=== PATIENT | male | born 1970 | race Caucasian/White ===

== ENCOUNTER 2018-12-14 08:00 | Outpatient (CLI) | payer BC, MEDICAID ==
[2018-12-14 17:58] LABS: BASOPHILS % (AUTO) 0.3 %; EOSINOPHILS # (AUTO) 0.1 10^3/uL (0.0-0.7); HGB - HEMOGLOBIN 13.4 g/dL (14.0-18.0); LYMPHOCYTES # (AUTO) 1.8 10^3/uL (1.5-3.5); LYMPHOCYTES % (AUTO) 24.4 %; MEAN CORPUSCULAR HGB CONC 33.7 g/dL (32.0-36.0); MEAN CORPUSCULAR VOLUME 86.1 fL (80.0-94.0); MEAN PLATELET VOLUME 7.8 fL (7.4-11.4); MONOCYTES # (AUTO) 0.6 10^3/uL (0.0-1.0); MONOCYTES % (AUTO) 8.7 %; NEUTROPHILS # (AUTO) 4.8 10^3/uL (1.5-6.6); NEUTROPHILS % (AUTO) 64.6 %; PLT - PLATELET COUNT 308 10^3/uL (130-450); RED BLOOD COUNT 4.61 10^6/uL (4.70-6.10); RED CELL DISTRIBUTION WIDTH 12.8 % (12.0-15.0); WHITE BLOOD COUNT 7.4 x10^3/uL (4.8-10.8)
[2018-12-14 18:31] LABS: HB2 TOTAL 14.7 g/dL; HEMOGLOBIN A1C 0.44 g/dL; HEMOGLOBIN A1C % 4.9 % (4.6-6.2)
[2018-12-14 18:37] LABS: ALBUMIN 3.4 g/dL (3.2-5.5); ALBUMIN/GLOBULIN RATIO 1.1 (1.0-2.2); ALKALINE PHOSPHATASE 72 IU/L (42-121); ALT ALANINE AMINOTRANSFERASE 33 IU/L (10-60); AST ASPARTATE AMINOTRANSFERASE 26 IU/L (10-42); BILIRUBIN,TOTAL 0.7 mg/dL (0.2-1.0); BUN - BLOOD UREA NITROGEN 8 mg/dL (6-20); CALCIUM 8.8 mg/dL (8.5-10.3); CARBON DIOXIDE - CO2 30 mmol/L (21-32); CHLORIDE 99 mmol/L (101-111); CHOL/HDL RATIO 2.7 (<5.0); CHOLESTEROL 134 mg/dL; CREATININE 0.8 mg/dL (0.6-1.2); GFR - MDRD 102 (>89); GLUCOSE 96 mg/dL (70-100); HDL CHOLESTEROL 49 mg/dL; LDL CHOLESTEROL,CALCULATED 69 mg/dL; LDL/HDL RATIO 1.4 (<3.6); SODIUM 136 mmol/L (135-145); TOTAL PROTEIN 6.6 g/dL (6.7-8.2); VLDL CHOLESTEROL 16 mg/dL
== END 2018-12-14 23:59 | disposition home or self-care (01) ==
LOC: LAB.S 08:00
PROVIDERS: ATTEND Nurse Practitioner
DX: Z00.00 Encounter for general adult medical examination without abnormal findings (principal)
CPT/HCPCS: 36415; 80053; 80061; 82274; 83036; 83721; 84153; 85025

== ENCOUNTER 2019-04-15 14:11 | Inpatient (IN) | payer MEDICAID ==
[2019-04-15] MEDS ORDERED: VANCOMYCIN INJ 1.5 GM in SODIUM CHLORIDE 0.9% 500 ML IV STA (16:46)
[2019-04-15] MEDS ORDERED: AMPICILLIN/SULBACTAM 3 GM in SODIUM CHLORIDE 0.9% MINIBAG 100 ML IV STA (16:46)
[2019-04-15] MEDS ORDERED: SODIUM CHLORIDE 0.9% 1,000 ML IV ONE ×2 (16:48)
[2019-04-15] MEDS ORDERED: LIDOCAINE 2% 10 ML MDV SUBQ STA (16:48)
[2019-04-15] MEDS ORDERED: PIPERACILLIN/TAZOBACTAM 4.5 GM in SODIUM CHLORIDE 0.9% MINIBAG 100 ML IV STA (16:51)
[2019-04-15] MEDS ORDERED: TETANUS/DIPHTHERIA/PERTUSSIS 0.5 ML SYRINGE IM ONE (16:54)
--- NOTE | 2019-04-15 16:56 | ED Physician Documentation ---
History of Present Illness - Stated complaint Stated Complaint: LEFT ARM SWELLING/BUMP - Chief complaint Chief Complaint: Ext Problem - History obtained from History obtained from: Patient - History of Present Illness Timing: How many days ago (several) Pain level max: 8 Pain level now: 8 - Additonal information Additional information: 48-year-old male with left wrist swelling and left arm erythema and redness. No fevers. He uses heroin. Unknown last tetanus. Patient is right-handed. Worse with movement and better with rest. No trauma. Review of Systems Ten Systems: 10 systems reviewed and negative Constitutional: denies: Fever, Chills Throat: denies: Sore throat Cardiac: denies: Chest pain / pressure Respiratory: denies: Cough GI: denies: Vomiting, Diarrhea Skin: denies: Rash Musculoskeletal: denies: Neck pain, Back pain Neurologic: denies: Headache PD PAST MEDICAL HISTORY - Past Medical History Past Medical History: No - Past Surgical History Past Surgical History: No - Allergies Allergies/Adverse Reactions: Allergies Allergy/AdvReac Type Severity Reaction Status Date / Time No Known Drug Allergies Allergy Verified 04/15/19 14:16 - Social History Does the pt smoke?: No Smoking Status: Never smoker Does the pt drink ETOH?: Yes Does the pt have substance abuse?: Yes Substance Use and Type: Marijuana, Meth, Heroin - Immunizations Immunizations are current?: No PD ED PE NORMAL - Vitals Vital signs reviewed: Yes - General General: Alert and oriented X 3, No acute distress - HEENT HEENT: Moist mucous membranes - Neck Neck: Supple, no meningeal sign - Cardiac Cardiac: RRR - Respiratory Respiratory: No respiratory distress, Clear bilaterally - Abdomen Abdomen: Soft, Non tender, Non distended - Derm Derm: Warm and dry - Extremities Extremities: Other (L wrist - dorsum swelling, erythema. NVI. diffuse swelling of the hand and forearm. no palmar tenderness. Significant cellulitis from the tips of the left hand to the left elbow.) - Neuro Neuro: Alert and oriented X 3 - Psych Psych: Normal mood, Normal affect Results - Vitals Vitals: Vital Signs - 24 hr 04/15/19 04/15/19 14:13 17:28 Temperature 36.9 C 37.5 C Heart Rate 120 H 101 H Respiratory 19 16 Rate Blood Pressure 160/88 H 141/100 H O2 Saturation 98 97 Oxygen O2 Source Room air - Labs Labs: Laboratory Tests 04/15/19 04/15/19 04/15/19 17:00 17:00 17:00 WBC 18.7 H RBC 5.17 Hgb 14.6 Hct 43.5 MCV 84.1 MCH 28.2 MCHC 33.6 RDW 12.6 Plt Count 337 MPV 8.5 Neut # (Auto) Not Reportable Lymph # (Auto) Not Reportable Harvey # (Auto) Not Reportable Eos # (Auto) Not Reportable Baso # (Auto) Not Reportable Absolute Nucleated RBC Not Reportable Total Counted 100 Band Neuts % (Manual) 0 Abnorm Lymph % (Manual) 0 Nucleated RBC % Not Reportable Neutrophils # (Manual) 14.6 H Lymphocytes # (Manual) 1.9 Monocytes # (Manual) 2.1 H Eosinophils # (Manual) 0.2 Basophils # (Manual) 0.0 Differential Comment MANUAL DIFFERENTIAL WBC Morphology NORMAL APPEARANCE Platelet Estimate NORMAL (130-450,000) Platelet Morphology NORMAL APPEARANCE RBC Morph Micro Appear NORMAL APPEARANCE Sodium 136 Potassium 4.0 Chloride 98 L Carbon Dioxide 27 Anion Gap 11.0 BUN 14 Creatinine 0.9 Estimated GFR (MDRD) 89 Glucose 93 Lactic Acid 1.0 Calcium 9.1 Procedures - Abscess I&D (location) L wrist Preparation: Chlorhexadine, Lidocaine 2 % Incision: Incised with scalpel, Purulent drainage, Irrigated, Packed, Culture obtained Other: Pt tolerated well, Dressing applied, Antibiotic prescribed PD MEDICAL DECISION MAKING - ED course Complexity details: reviewed results, re-evaluated patient, considered differential, d/w patient, d/w financial reporting consultant ED course: 48-year-old male with a left wrist abscess with significant cellulitis of the hand and arm. Elevated white blood cell count. Given vancomycin and Zosyn. Will admit for further care. Discussed the case with Dr. Cook, hospitalist who accepts. Also discussed the case with Dr. Marsh, orthopedics who will consult on the patient. No evidence of deep space infection in the hand at this time. No evidence of necrotizing soft tissue infection. This document was made in part using voice recognition software. While efforts are made to proofread this document, sound alike and grammatical errors may occur. Departure - Departure Disposition: 66 [facility] DC/Xfer Clinical Impression: Abscess Cellulitis Qualifiers: Site of cellulitis: extremity Site of cellulitis of extremity: upper extremity Laterality: left Qualified Code(s): L03.114 - Cellulitis of left upper limb Condition: Stable Discharge Date/Time: 04/15/19 19:04
[2019-04-15 17:07] LABS: BASOPHILS % (AUTO) 0.3 %; EOSINOPHILS % (AUTO) 0.5 %; HGB - HEMOGLOBIN 14.6 g/dL (14.0-18.0); LYMPHOCYTES % (AUTO) 10.6 %; MEAN CORPUSCULAR HEMOGLOBIN 28.2 pg (27.0-31.0); MEAN CORPUSCULAR HGB CONC 33.6 g/dL (32.0-36.0); MEAN CORPUSCULAR VOLUME 84.1 fL (80.0-94.0); MEAN PLATELET VOLUME 8.5 fL (7.4-11.4); MONOCYTES % (AUTO) 10.3 %; NEUTROPHILS % (AUTO) 77.3 %; PLT - PLATELET COUNT 337 10^3/uL (130-450); RED BLOOD COUNT 5.17 10^6/uL (4.70-6.10); RED CELL DISTRIBUTION WIDTH 12.6 % (12.0-15.0); WHITE BLOOD COUNT 18.7 x10^3/uL (4.8-10.8)
[2019-04-15 17:13] LABS: ABNORMAL LYMPHS % (MANUAL) 0 %; BAND NEUTROPHILS % (MANUAL) 0 %
[2019-04-15 17:18] LABS: CALCIUM 9.1 mg/dL (8.5-10.3); CREATININE 0.9 mg/dL (0.6-1.2)
[2019-04-15] MEDS ORDERED: ONDANSETRON 4 MG/2 ML VIAL IVP PRN (17:38)
--- NOTE | 2019-04-15 17:46 | HISTORY & PHYSICAL EXAMINATION ---
Chief Complaint - Chief Complaint Chief Complaint: left wrist cellulitis History of Present Illness - History of Present Illness HPI Comment/Other: Mr. Dsouza is a 48-yrs-old male with a hx of Marijuana, Meth, Heroin substance abuse, who present ER complain of left wrist infection and pain. Pt report his infection had 3-4 days. He did not know how the infection started. He report he felt swelling, pain in this left wrist, then he saw a pus on the infection site. The erythema was extended from wrist up to the left arm. He admit he still shoot up with Heroin but he denies he shoot at the left wrist " I usually shoot on my arms, not the wrist." ER provider did I/D for pt, and pt's arm is covered by a gauze. There is a tiny blood around the his wrist. Pt report the tiny blood was from I/D procedure. He report he felt warm at home but he did not check the temperature. Pt had temperature 37.9 degree at ER. pt also had significant elevated WBC to 18.7. pt denies chest pain, cough, shortness of breath, headache. pt was admitted for cellulitis. History - Past Medical History MRSA Hx?: No - Family & Social History Family History Comment/Other: pt report he is living at [place] and single without family and child. Social History Notes: pt denies alcohol abuse and cigarette smoker. He report he still use Heroin Meds/Allgy - Allergies Allergies/Adverse Reactions: Allergies Allergy/AdvReac Type Severity Reaction Status Date / Time No Known Drug Allergies Allergy Verified 04/15/19 14:16 Review of Systems - Constitutional Constitutional: reports: Fever, Chills. denies: Fatigue, Malaise, Weakness, Poor appetite, Diaphoresis, Night sweats - Eyes Eyes: denies: Pain, Irritation, Amaurosis, Blurred vision, Spots in vision, Fie ld loss, Vision loss, Dipolpia - Ears, Nose & Throat Ears, Nose & Throat: denies: Ear pain, Hearing loss, Hearing aids, Tinnitus, Vertigo, Nasal pain, Nasal discharge, Nosebleeds, Nasal obstruction, Nasal congestion, Postnasal drainage, Dentures, Sore throat, Hoarseness, Mouth lesions, Bleeding gums, Dental decay - Cardiovascular Cariovascular: denies: Irregular heart rate, Palpitations, Chest pain, Edema, Lightheadedness, Syncope, Exertional dyspnea, Decr. exercise tolerance - Respiratory Respiratory: denies: Cough, Sputum production, Wheezing, Snoring, Hemoptysis, Orthopnea, SOB at rest, SOB with exertion - Gastrointestinal Gastrointestinal: denies: Abdominal pain, Abdominal distention, Constipation, Diarrhea, Change in bowel habits, Rectal bleeding, Black stools, Bloody stools, Nausea, Vomiting, Bile emesis, Danis blood emesis, Coffee grounds emesis - Genitourinary Genitourinary: denies: Dysuria, Frequency, Urgency, Hematuria, Incontinence, Flank pain, Nocturia, Urethral discharge - Musculoskeletal Musculoskeletal: denies: Muscle pain, Back pain, Muscle aches, Stiffness, Limited range of motion, Muscle weakness, Gout, Joint pain - Integumentary Integumentary: reports: Rash. denies: Pruritis, Lesions, Dryness, Lumps, Acne, Pigment changes, Nail changes - Neurological Neurological: denies: General weakness, Focal weakness, Headache, Dizziness, Numbness, Memory problems, Pre-existing deficit, Abnormal gait, Seizures, Incoordination, Slurred speech - Psychiatric Psychiatric: denies: Depression, Anxiety, Suicidal, Delusions, Hallucinations, Homicidal - Endocrine Endocrine: denies: Polyuria, Polydypsia, Polyphagia, Intolerance to cold - Hematologic/Lymphatic Hematologic/Lymphatic: denies: Anemia, Bruising, Petechiae, Blood clots, Lymphadenopathy, Bleeding tendencies Exam - Vital Signs Vital Signs: Vital Signs x48h Temp Pulse Resp BP Pulse Ox 04/15/19 17:28 37.5 C 101 H 16 141/100 H 97 04/15/19 14:13 36.9 C 120 H 19 160/88 H 98 - Physical Exam General Appearance: positive: No acute distress, Alert. negative: Lethargic Eyes Bilateral: positive: Normal inspection, PERRL, No lid inflammation, Conjunctivae nml ENT: positive: ENT inspection nml, Pharynx nml, No signs of dehydration. negative: Purulent nasal drainage, Pharyngeal erythema, Oral lesions Neck: positive: Nml inspection, Thyroid nml, No JVD, Trachea midline. negative: Thyromegaly, Lymphadenopathy (R), Lymphadenopathy (L), Stiff neck, Swelli ng/bruising, Tracheal deviation Respiratory: positive: Chest non-tender, No respiratory distress, Breath sounds nml. negative: Wheezes, Rales, Rhonchi Cardiovascular: positive: Regular rate & rhythm, No murmur, No gallop. negative: Irregularly irregular, Extrasystoles, Tachycardia, Bradycardia, JVD present, Systolic murmur, Diastolic murmur Peripheral Pulses: positive: 2+ Abdomen: positive: Non-tender, No organomegaly, Nml bowel sounds. negative: No distention, Tenderness, Guarding, Rebound Back: positive: Nml inspection. negative: CVA tenderness (R), CVA tenderness (L) Skin: positive: Warm, Dry, Skin rash, Other (swelling, erythema on left posterior hand. erythema is extended upto the left arm close to elbow. normal capillary refill and ROM on distial left fingers). negative: Cyanosis, Diaphoresis, Pallor Extremities: positive: Full ROM. negative: Calf tenderness, Joint swelling, Tashia's sign/cords Neurologic/Psychiatric: positive: Oriented x3, Motor nml, Sensation nml, Mood/affect nml. negative: Weakness, Sensory loss, Facial droop, Slurred/abnml speech, Depressed mood/affect Sepsis Event Note (H) - Evaluation Current Stage of Sepsis: Sepsis Possible source of Sepsis: positive: Skin/soft tissue - Sepsis Criteria Sepsis Criteria: Recorded Heart Rate greater than 90 bpm, WBC count greater than 12,000 or less than 4000 Conclusion/Plan - Problem List (1) Cellulitis Conclusion/Plan: cellulitis on left wrist, unknown the etiology. it is likely infected by staph a ureus treat with antibiotics vancomycin and zosyn IVF of NS pain control lab and vital monitor Qualifiers: Site of cellulitis: extremity Site of cellulitis of extremity: upper extremity Laterality: left Qualified Code(s): L03.114 - Cellulitis of left upper limb (2) Abscess Conclusion/Plan: pt had pus on the admission. ER provider did I/D for pt. wound culture is pending. continue antibiotics pain control (3) Illicit drug use Conclusion/Plan: advise pt quit illicit drug abuse will UDS to check (4) Full code status Conclusion/Plan: pt request full code status - Lab Results Fish Bones: 04/16/19 05:25 04/16/19 05:25 Core Measures - Anticipated LOS I expect patient to be DC'd or transferred within 96 hours.: Yes - DVT/VTE - Prophylaxis VTE/DVT Device ordered at admit?: Yes VTE/DVT Prophylaxis med ordered at admit?: Yes
[2019-04-15 17:54] LABS: DIFFERENTIAL COMMENT MANUAL DIFFERENTIAL; EOSINOPHILS # (MANUAL) 0.2 10^3/uL (0-0.7); LYMPHOCYTES # (MANUAL) 1.9 10^3/uL (1.5-3.5); LYMPHOCYTES % (MANUAL) 10 %; MONOCYTES # (MANUAL) 2.1 10^3/uL (0.0-1.0); NEUTROPHILS # (MANUAL) 14.6 10^3/uL (1.5-6.6); NEUTROPHILS % (MANUAL) 78 %; PLATELET ESTIMATE, MANUAL NORMAL (130-450,000) (NORMAL); PLATELET MORPHOLOGY NORMAL APPEARANCE (NORMAL); RBC MORPHOLOGY (MULTIPLE) NORMAL APPEARANCE (NORMAL)
[2019-04-15] MEDS ORDERED: HYDROmorphone 1 MG/ML CARPUJECT IVP STA (17:56)
[2019-04-15] MEDS ORDERED: VANCOMYCIN PER PHARMACY 0.001 GM in SODIUM CHLORIDE 0.9% 250 ML IV SCH (18:00)
[2019-04-15] MEDS: SODIUM CHLORIDE 0.9% 1,000 ML IV SCH (19:21)
[2019-04-15 19:24] LABS: MUDS CUTOFF CONCENTRATIONS CUTOFF CONC BELOW:
[2019-04-15 19:40] LABS: AMPHETAMINE SCREEN,URINE POSITIVE (NEGATIVE); BENZODIAZEPINES SCREEN, URINE POSITIVE (NEGATIVE); COCAINE SCREEN URINE NEGATIVE (NEGATIVE); METHADONE SCREEN, URINE NEGATIVE (NEGATIVE); METHAMPHETAMINES SCREEN, URINE NEGATIVE (NEGATIVE); OPIATE SCREEN, URINE NEGATIVE (NEGATIVE); OXYCODONE SCREEN, URINE NEGATIVE (NEGATIVE); PROPOXYPHENE SCREEN, URINE NEGATIVE (NEGATIVE); TRICYCLIC ANTIDEPRESSANT,URINE POSITIVE (NEGATIVE)
[2019-04-15] MEDS: oxyCODONE 5 MG TABLET PO PRN (20:03)
[2019-04-15] MEDS: PIPERACILLIN/TAZOBACTAM 4.5 GM in SODIUM CHLORIDE 0.9% MINIBAG 100 ML IV SCH (20:06)
[2019-04-15] MEDS: FAMOTIDINE 20 MG TABLET PO SCH (21:28)
[2019-04-15] MEDS: HYDROmorphone 1 MG/ML CARPUJECT IVP PRN (22:55)
[2019-04-16] MEDS: PIPERACILLIN/TAZOBACTAM 4.5 GM in SODIUM CHLORIDE 0.9% MINIBAG 100 ML IV SCH ×4 (00:31→19:05)
[2019-04-16] MEDS: HYDROmorphone 1 MG/ML CARPUJECT IVP PRN ×5 (00:57→15:52)
[2019-04-16] MEDS: VANCOMYCIN INJ 1 GM in SODIUM CHLORIDE 0.9% 250 ML IV SCH ×3 (01:03→16:59)
[2019-04-16] MEDS: SODIUM CHLORIDE FLUSH 0.9% 10 ML SYRINGE IVP SCH ×3 (01:43→15:52)
[2019-04-16] MEDS: oxyCODONE 5 MG TABLET PO PRN ×3 (02:01→20:53)
[2019-04-16] MEDS: ACETAMINOPHEN 325 MG TABLET PO PRN (02:01)
[2019-04-16 05:50] LABS: ALBUMIN 3.2 g/dL (3.2-5.5); ALBUMIN/GLOBULIN RATIO 0.9 (1.0-2.2); BILIRUBIN,TOTAL 2.1 mg/dL (0.2-1.0); CALCIUM 8.6 mg/dL (8.5-10.3); TOTAL PROTEIN 6.8 g/dL (6.7-8.2)
[2019-04-16 07:51] LABS: BASOPHILS % (AUTO) 0.3 %; RED BLOOD COUNT 4.85 10^6/uL (4.70-6.10)
[2019-04-16 07:54] LABS: EOSINOPHILS % (AUTO) 0.9 %; HGB - HEMOGLOBIN 13.4 g/dL (14.0-18.0); LYMPHOCYTES % (AUTO) 14.6 %; MEAN CORPUSCULAR HEMOGLOBIN 27.6 pg (27.0-31.0); MEAN CORPUSCULAR HGB CONC 32.8 g/dL (32.0-36.0); MEAN CORPUSCULAR VOLUME 84.3 fL (80.0-94.0); MEAN PLATELET VOLUME 9.1 fL (7.4-11.4); NEUTROPHILS % (AUTO) 73.6 %; PLT - PLATELET COUNT 332 10^3/uL (130-450); RED CELL DISTRIBUTION WIDTH 12.7 % (12.0-15.0); WHITE BLOOD COUNT 15.5 x10^3/uL (4.8-10.8)
[2019-04-16 08:12] LABS: ABNORMAL LYMPHS % (MANUAL) 0 %; BAND NEUTROPHILS % (MANUAL) 0 %
[2019-04-16 08:16] LABS: EOSINOPHILS # (MANUAL) 0.2 10^3/uL (0-0.7); LYMPHOCYTES # (MANUAL) 1.4 10^3/uL (1.5-3.5); LYMPHOCYTES % (MANUAL) 9 %; MONOCYTES # (MANUAL) 2.5 10^3/uL (0.0-1.0); NEUTROPHILS # (MANUAL) 11.5 10^3/uL (1.5-6.6); NEUTROPHILS % (MANUAL) 74 %
[2019-04-16 08:18] LABS: PLATELET ESTIMATE, MANUAL NORMAL (130-450,000) (NORMAL); PLATELET MORPHOLOGY NORMAL APPEARANCE (NORMAL); RBC MORPHOLOGY (MULTIPLE) NORMAL APPEARANCE (NORMAL)
[2019-04-16 08:31] LABS: DIFFERENTIAL COMMENT MANUAL DIFFERENTIAL
[2019-04-16] MEDS: SODIUM CHLORIDE 0.9% 1,000 ML IV SCH (08:48)
--- NOTE | 2019-04-16 10:12 | CONSULTATION NOTE ---
DATE OF SERVICE: 04/16/2019 Physician: Georgi Marsh MD ORTHOPEDIC INPATIENT CONSULTATION NOTE REFERRING PHYSICIAN: Dr. Calhoun in the Emergency Room Department. CHIEF COMPLAINT: "My left hand is sore." HISTORY OF PRESENT ILLNESS: Patient is a 48-year-old, right-hand dominant, male drug abuse r who apparently has noted pain, swelling, and redness to the dorsum of his left nondominant hand aft er an injection of drugs over a week ago. Patient apparently was attempting to see if this would res olve on its own, but it finally reached the point where he needed to be evaluated and treated in the emergency room. Dr. Calhoun in the emergency room department diagnosed the hand infection/abscess and proceeded to rafiq the abscess over the extensor surface of his hand. He was admitted to the medica l service for further wound care as well as multiple IV antibiotics. Overnight, he apparently has co ntinued to have some drainage from his wound. His hand edema, range of motion of his hand and erythe ma has improved remarkably. Patient denies having any fevers or numbness in his hand. PHYSICAL EXAMINATION: Patient was afebrile. His left hand dressings were removed. Patient still groves s a Nu Gauze packing over the dorsal incision site where his abscess was lanced in the emergency room . Does have some surrounding erythema, but is markedly decreased from the reports. We can start see ing some skin wrinkling on the dorsum of the hand suggesting that the edema is decreasing. Patient h as minimal lymphangitis noted in the distal forearm. Patient has good range of motion of his wrist a nd his fingers today without much discomfort. Neurovascular appears to be intact distally. LABORATORY: Showed an elevated white count of 18,700 on admission. Followup blood work taken 18 tha rs later showed a white count decreasing down to 15,500. ASSESSMENT: Left nondominant hand infection comprised of a cellulitis and localized abscess, dorsum of his hand - this is from IV drug abuse. PLAN: With the patient's clinical improvement, we will continue to observe the hand at this point. We will go ahead and make him n.p.o. after midnight today and we will reevaluate his hand in the morn ing. If it takes a turn for the worse, he may need surgical incision and drainage of his hand absces s. If he continues to improve clinically, we will continue to keep him on his antibiotics and keep t he wick in his wound for an additional 24 hours. TD: 04/16/2019 09:44
[2019-04-16] MEDS: FAMOTIDINE 20 MG TABLET PO SCH ×2 (12:09→20:53)
[2019-04-16] MEDS: POLYETHYLENE GLYCOL 3350 17 GM PACKET PO SCH (12:10)
[2019-04-16] MEDS: ENOXAPARIN 40 MG/0.4 ML SYRINGE SUBQ SCH (12:13)
--- NOTE | 2019-04-16 14:47 | PROVIDER PROGRESS NOTE ---
Subjective - Prog Note Date Prog Note Date: 04/16/19 - Subjective Pt reports feeling: Improved Subjective: pt report he has no fever, chill. he feel lots of better after treated. The swelling of his hand and erythema are significantly reduced, and pain is better. Current Medications - Current Medications Current Medications: Active Medications Acetaminophen (Tylenol) 650 mg PO Q4HR PRN PRN Reason: Pain 1 to 4 Last Admin: 04/16/19 02:01 Dose: 650 mg Enoxaparin Sodium (Lovenox) 40 mg SUBQ DAILY [facility] Last Admin: 04/16/19 12:13 Dose: 40 mg Famotidine (Pepcid) 20 mg PO BID [facility] Last Admin: 04/16/19 12:09 Dose: 20 mg Hydromorphone HCl (Dilaudid Inj Carp) 1 mg IVP Q2HR PRN PRN Reason: PAIN Last Admin: 04/16/19 15:52 Dose: 1 mg Piperacillin Sod/Tazobactam (Sod 4.5 gm/ Sodium Chloride) 100 mls @ 200 mls/hr IV Q6H [facility] Last Infusion: 04/16/19 13:35 Dose: Infused Vancomycin HCl 1 gm/ Sodium (Chloride) 250 mls @ 167 mls/hr IV Q8H [facility] Last Admin: 04/16/19 16:59 Dose: 167 mls/hr Ondansetron HCl (Zofran Inj) 4 mg IVP Q6HR PRN PRN Reason: Nausea / Vomiting Last Admin: 04/16/19 00:57 Dose: 4 mg Oxycodone HCl (Roxicodone) 5 mg PO Q4HR PRN PRN Reason: Pain 5 to 7 Last Admin: 04/16/19 16:59 Dose: 5 mg Polyethylene Glycol (Miralax) 17 gm PO DAILY [facility] Last Admin: 04/16/19 12:10 Dose: 17 gm Sodium Chloride (Normal Saline Flush 0.9%) 10 ml IVP PRN PRN PRN Reason: NEEDED PER PROVIDER ORDERS Sodium Chloride (Normal Saline Flush 0.9%) 10 ml IVP 0100,0900,1700 [facility] Last Admin: 04/16/19 15:52 Dose: 10 ml Aripiprazole [Abilify] 30 mg PO DAILY 04/16/19 Doxepin [SINEquan] 25 mg PO QPM 04/16/19 Fluoxetine HCl 60 mg PO DAILY 04/16/19 Trazodone HCl 300 mg PO QPM 04/16/19 Objective - Vital Signs/Intake & Output Reviewed Vital Signs: Yes Vital Signs: Vital Signs x48h Temp Pulse Resp BP Pulse Ox 04/16/19 13:00 37.3 C 88 14 130/70 99 04/16/19 08:04 36.8 C 74 14 116/67 98 Intake & Output: Intake & Output 04/13/19 04/14/19 04/15/19 04/16/19 23:59 23:59 23:59 23:59 Intake Total 2369.227 6740.667 Output Total 400 1975 Balance 1508.333 -213.333 - Objective General Appearance: positive: No acute distress, Alert. negative: Lethargic Eyes Bilateral: positive: Normal inspection, PERRL, No lid inflammation, Conjunctivae nml ENT: positive: ENT inspection nml, Pharynx nml, No signs of dehydration. negative: Purulent nasal drainage, Pharyngeal erythema, Oral lesions Neck: positive: Nml inspection, Thyroid nml, No JVD, Trachea midline. negative: Thyromegaly, Lymphadenopathy (R), Lymphadenopathy (L), Stiff neck, Swelling/bruising, Tracheal deviation Respiratory: positive: Chest non-tender, No respiratory distress, Breath sounds nml. negative: Wheezes, Rales, Rhonchi Cardiovascular: positive: Regular rate & rhythm, No murmur, No gallop. negative: Irregularly irregular, Extrasystoles, Tachycardia, JVD present, Systolic murmur, Diastolic murmur Peripheral Pulses: 2+ Radial (R), 2+ Radial (L), 2+ Dorsalis pedis (R), 2+ Dorsalis pedis (L) Abdomen: positive: Non-tender, No organomegaly, Nml bowel sounds, No distention. negative: Tenderness, Guarding, Rebound Back: positive: Nml inspection. negative: CVA tenderness (R), CVA tenderness (L) Skin: positive: Warm, Dry, Skin rash, Laceration (cm) (pt had I/D and covered with Gauze). negative: Cyanosis, Diaphoresis, Pallor Extremities: negative: Calf tenderness, Joint swelling, Tashia's sign/cords Neurologic/Psychiatric: positive: Oriented x3, Sensation nml, Mood/affect nml. negative: Weakness, Sensory loss, Facial droop, Slurred/abnml speech, Depressed mood/affect - Lab Results Fish Bones: 04/16/19 05:25 04/16/19 05:25 Other Labs: Lab Results x24hrs 04/16/19 04/16/19 04/15/19 Range/Units 05:25 05:25 19:20 WBC 15.5 H (4.8-10.8) x10^3/uL RBC 4.85 (4.70-6.10) 10^6/uL Hgb 13.4 L (14.0-18.0) g/dL Hct 40.9 L (42.0-52.0) % MCV 84.3 (80.0-94.0) fL MCH 27.6 (27.0-31.0) pg MCHC 32.8 (32.0-36.0) g/dL RDW 12.7 (12.0-15.0) % Plt Count 332 (130-450) 10^3/uL MPV 9.1 (7.4-11.4) fL Neut # (Auto) OIL HEAT TECHNICIAN Lymph # (Auto) OIL HEAT TECHNICIAN [place] # (Auto) OIL HEAT TECHNICIAN Eos # (Auto) OIL HEAT TECHNICIAN Baso # (Auto) OIL HEAT TECHNICIAN Absolute Nucleated RBC OIL HEAT TECHNICIAN Total Counted 100 Band Neuts % (Manual) 0 (0 - 10) % Abnorm Lymph % (Manual) 0 % Nucleated RBC % OIL HEAT TECHNICIAN Neutrophils # (Manual) 11.5 H (1.5-6.6) 10^3/uL Lymphocytes # (Manual) 1.4 L (1.5-3.5) 10^3/uL Monocytes # (Manual) 2.5 H (0.0-1.0) 10^3/uL Eosinophils # (Manual) 0.2 (0-0.7) 10^3/uL Basophils # (Manual) 0.0 (0-0.1) 10^3/uL Differential Comment MANUAL DIFFERENTIAL WBC Morphology NORMAL APPEARANCE (NORMAL) Platelet Estimate NORMAL (130-450,000) (NORMAL) Platelet Morphology NORMAL APPEARANCE (NORMAL) RBC Morph Micro Appear NORMAL APPEARANCE (NORMAL) Sodium 140 (135-145) mmol/L Potassium 3.9 (3.5-5.0) mmol/L Chloride 102 (101-111) mmol/L Carbon Dioxide 25 (21-32) mmol/L Anion Gap 13.0 (6-13) BUN 12 (6-20) mg/dL Creatinine 1.0 (0.6-1.2) mg/dL Estimated GFR (MDRD) 79 L (>89) Glucose 108 H (70-100) mg/dL Lactic Acid (0.5-2.2) mmol/L Calcium 8.6 (8.5-10.3) mg/dL Magnesium 2.0 (1.7-2.8) mg/dL Total Bilirubin 2.1 H (0.2-1.0) mg/dL AST 16 (10-42) IU/L ALT 29 (10-60) IU/L Alkaline Phosphatase 85 (42-121) IU/L Total Protein 6.8 (6.7-8.2) g/dL Albumin 3.2 (3.2-5.5) g/dL Globulin 3.6 (2.1-4.2) g/dL Albumin/Globulin Ratio 0.9 L (1.0-2.2) Urine Opiates Screen NEGATIVE (NEGATIVE) Ur Oxycodone Screen NEGATIVE (NEGATIVE) Urine Methadone Screen NEGATIVE (NEGATIVE) Ur Propoxyphene Screen NEGATIVE (NEGATIVE) Ur Barbiturates Screen NEGATIVE (NEGATIVE) Ur Tricyclics Screen POSITIVE H (NEGATIVE) Ur Phencyclidine Scrn NEGATIVE (NEGATIVE) Ur Amphetamine Screen POSITIVE H (NEGATIVE) U Methamphetamines Scrn NEGATIVE (NEGATIVE) U Benzodiazepines Scrn POSITIVE H (NEGATIVE) Urine Cocaine Screen NEGATIVE (NEGATIVE) U Cannabinoids Screen POSITIVE H (NEGATIVE) 04/15/19 04/15/19 04/15/19 Range/Units 17:00 17:00 17:00 WBC 18.7 H (4.8-10.8) x10^3/uL RBC 5.17 (4.70-6.10) 10^6/uL Hgb 14.6 (14.0-18.0) g/dL Hct 43.5 (42.0-52.0) % MCV 84.1 (80.0-94.0) fL MCH 28.2 (27.0-31.0) pg MCHC 33.6 (32.0-36.0) g/dL RDW 12.6 (12.0-15.0) % Plt Count 337 (130-450) 10^3/uL MPV 8.5 (7.4-11.4) fL Neut # (Auto) Not Reportable Lymph # (Auto) Not Reportable [place] # (Auto) Not Reportable Eos # (Auto) Not Reportable Baso # (Auto) Not Reportable Absolute Nucleated RBC Not Reportable Total Counted 100 Band Neuts % (Manual) 0 (0 - 10) % Abnorm Lymph % (Manual) 0 % Nucleated RBC % Not Reportable Neutrophils # (Manual) 14.6 H (1.5-6.6) 10^3/uL Lymphocytes # (Manual) 1.9 (1.5-3.5) 10^3/uL Monocytes # (Manual) 2.1 H (0.0-1.0) 10^3/uL Eosinophils # (Manual) 0.2 (0-0.7) 10^3/uL Basophils # (Manual) 0.0 (0-0.1) 10^3/uL Differential Comment MANUAL DIFFERENTIAL WBC Morphology NORMAL APPEARANCE (NORMAL) Platelet Estimate NORMAL (130-450,000) (NORMAL) Platelet Morphology NORMAL APPEARANCE (NORMAL) RBC Morph Micro Appear NORMAL APPEARANCE (NORMAL) Sodium 136 (135-145) mmol/L Potassium 4.0 (3.5-5.0) mmol/L Chloride 98 L (101-111) mmol/L Carbon Dioxide 27 (21-32) mmol/L Anion Gap 11.0 (6-13) BUN 14 (6-20) mg/dL Creatinine 0.9 (0.6-1.2) mg/dL Estimated GFR (MDRD) 89 (>89) Glucose 93 (70-100) mg/dL Lactic Acid 1.0 (0.5-2.2) mmol/L Calcium 9.1 (8.5-10.3) mg/dL Magnesium (1.7-2.8) mg/dL Total Bilirubin (0.2-1.0) mg/dL AST (10-42) IU/L ALT (10-60) IU/L Alkaline Phosphatase (42-121) IU/L Total Protein (6.7-8.2) g/dL Albumin (3.2-5.5) g/dL Globulin (2.1-4.2) g/dL Albumin/Globulin Ratio (1.0-2.2) Urine Opiates Screen (NEGATIVE) Ur Oxycodone Screen (NEGATIVE) Urine Methadone Screen (NEGATIVE) Ur Propoxyphene Screen (NEGATIVE) Ur Barbiturates Screen (NEGATIVE) Ur Tricyclics Screen (NEGATIVE) Ur Phencyclidine Scrn (NEGATIVE) Ur Amphetamine Screen (NEGATIVE) U Methamphetamines Scrn (NEGATIVE) U Benzodiazepines Scrn (NEGATIVE) Urine Cocaine Screen (NEGATIVE) U Cannabinoids Screen (NEGATIVE) ABX Reporting Has patient been on IV antibiotics over the past 48 hours?: Yes Sepsis Event Note (H) - Evaluation Current Stage of Sepsis: Sepsis Possible source of Sepsis: positive: Skin/soft tissue - Sepsis Criteria Sepsis Criteria: Recorded Heart Rate greater than 90 bpm, WBC count greater than 12,000 or less than 4000 Assessment/Plan - Problem List (1) Cellulitis Impression: 04/16 the erythema and swelling of dorsum of left hand is reduced. pt's pain is better controlled. continue antibiotics blood culture is pending cellulitis on left wrist, unknown the etiology. it is likely infected by staph aureus treat with antibiotics vancomycin and zosyn IVF of NS pain control lab and vital monitor (2) Abscess Conclusion/Plan: wound culture reveals positive gram stain with cocci, sensitive study is pending consult with orthopedics, will followup continue antibiotics pt had pus on the admission. ER provider did I/D for pt. wound culture is pen ding. continue antibiotics pain control (3) Illicit drug use Conclusion/Plan: advise pt quit illicit drug abuse will UDS to check Qualifiers: Site of cellulitis: extremity Site of cellulitis of extremity: upper extremity Laterality: left Qualified Code(s): L03.114 - Cellulitis of left upper limb
[2019-04-16 16:35] LABS: VANCOMYCIN,TROUGH 14.9 ug/mL (10.0-20.0)
[2019-04-17] MEDS: oxyCODONE 5 MG TABLET PO PRN ×2 (01:00→08:15)
[2019-04-17] MEDS: PIPERACILLIN/TAZOBACTAM 4.5 GM in SODIUM CHLORIDE 0.9% MINIBAG 100 ML IV SCH ×3 (01:01→13:12)
[2019-04-17] MEDS: SODIUM CHLORIDE FLUSH 0.9% 10 ML SYRINGE IVP PRN ×3 (02:30→14:04)
[2019-04-17] MEDS: VANCOMYCIN INJ 1 GM in SODIUM CHLORIDE 0.9% 250 ML IV SCH ×2 (02:30→08:16)
[2019-04-17] MEDS: SODIUM CHLORIDE FLUSH 0.9% 10 ML SYRINGE IVP SCH ×3 (02:34→18:20)
[2019-04-17] MEDS: HYDROmorphone 1 MG/ML CARPUJECT IVP PRN ×6 (02:35→21:21)
[2019-04-17 06:00] LABS: BASOPHILS % (AUTO) 0.5 %; EOSINOPHILS # (AUTO) 0.3 10^3/uL (0.0-0.7); EOSINOPHILS % (AUTO) 3.9 %; HGB - HEMOGLOBIN 12.6 g/dL (14.0-18.0); LYMPHOCYTES # (AUTO) 1.6 10^3/uL (1.5-3.5); LYMPHOCYTES % (AUTO) 20.4 %; MEAN CORPUSCULAR HEMOGLOBIN 27.3 pg (27.0-31.0); MEAN CORPUSCULAR HGB CONC 32.6 g/dL (32.0-36.0); MEAN CORPUSCULAR VOLUME 83.7 fL (80.0-94.0); MEAN PLATELET VOLUME 8.6 fL (7.4-11.4); MONOCYTES % (AUTO) 12.3 %; NEUTROPHILS # (AUTO) 4.9 10^3/uL (1.5-6.6); NEUTROPHILS % (AUTO) 61.8 %; PLT - PLATELET COUNT 311 10^3/uL (130-450); RED BLOOD COUNT 4.61 10^6/uL (4.70-6.10); RED CELL DISTRIBUTION WIDTH 12.5 % (12.0-15.0); WHITE BLOOD COUNT 7.9 x10^3/uL (4.8-10.8)
[2019-04-17 06:14] LABS: ALBUMIN 3.1 g/dL (3.2-5.5); ALBUMIN/GLOBULIN RATIO 0.8 (1.0-2.2); BILIRUBIN,TOTAL 0.9 mg/dL (0.2-1.0); CALCIUM 8.8 mg/dL (8.5-10.3); CREATININE 0.8 mg/dL (0.6-1.2); TOTAL PROTEIN 6.8 g/dL (6.7-8.2)
[2019-04-17] MEDS: ACETAMINOPHEN 325 MG TABLET PO PRN (08:14)
[2019-04-17] MEDS: FAMOTIDINE 20 MG TABLET PO SCH ×2 (08:14→20:14)
[2019-04-17] MEDS: ENOXAPARIN 40 MG/0.4 ML SYRINGE SUBQ SCH (08:17)
[2019-04-17] MEDS: POLYETHYLENE GLYCOL 3350 17 GM PACKET PO SCH (08:17)
--- NOTE | 2019-04-17 11:05 | PROVIDER PROGRESS NOTE ---
Subjective - Prog Note Date Prog Note Date: 04/17/19 Prog Note Time: 10:58 - Subjective Pt reports feeling: Improved Objective - Vital Signs/Intake & Output Vital Signs: Vital Signs x48h Temp Pulse Resp BP Pulse Ox 04/17/19 08:00 37.3 C 80 18 129/76 95 04/17/19 06:06 37.2 C 80 16 105/68 98 Intake & Output: Intake & Output 04/14/19 04/15/19 04/16/19 04/17/19 23:59 23:59 23:59 23:59 Intake Total 2557.052 0027.667 450 Output Total 400 1975 1125 Balance 7339.303 7727.667 -675 - Lab Results Fish Bones: 04/17/19 05:40 04/17/19 05:40 Other Labs: Lab Results x24hrs 04/17/19 04/17/19 04/16/19 Range/Units 05:40 05:40 16:21 WBC 7.9 (4.8-10.8) x10^3/uL RBC 4.61 L (4.70-6.10) 10^6/uL Hgb 12.6 L (14.0-18.0) g/dL Hct 38.6 L (42.0-52.0) % MCV 83.7 (80.0-94.0) fL MCH 27.3 (27.0-31.0) pg MCHC 32.6 (32.0-36.0) g/dL RDW 12.5 (12.0-15.0) % Plt Count 311 (130-450) 10^3/uL MPV 8.6 (7.4-11.4) fL Neut # (Auto) 4.9 (1.5-6.6) 10^3/uL Lymph # (Auto) 1.6 (1.5-3.5) 10^3/uL [place] # (Auto) 1.0 (0.0-1.0) 10^3/uL Eos # (Auto) 0.3 (0.0-0.7) 10^3/uL Baso # (Auto) 0.0 (0.0-0.1) 10^3/uL Absolute Nucleated RBC 0.00 x10^3/uL Nucleated RBC % 0.0 /100WBC Sodium 140 (135-145) mmol/L Potassium 3.8 (3.5-5.0) mmol/L Chloride 103 (101-111) mmol/L Carbon Dioxide 25 (21-32) mmol/L Anion Gap 12.0 (6-13) BUN 10 (6-20) mg/dL Creatinine 0.8 (0.6-1.2) mg/dL Estimated GFR (MDRD) 102 (>89) Glucose 99 (70-100) mg/dL Calcium 8.8 (8.5-10.3) mg/dL Total Bilirubin 0.9 (0.2-1.0) mg/dL AST 16 (10-42) IU/L ALT 28 (10-60) IU/L Alkaline Phosphatase 77 (42-121) IU/L Total Protein 6.8 (6.7-8.2) g/dL Albumin 3.1 L (3.2-5.5) g/dL Globulin 3.7 (2.1-4.2) g/dL Albumin/Globulin Ratio 0.8 L (1.0-2.2) Last Dose Date 04/16/19 Last Dose Time 1015 Vancomycin Trough 14.9 (10.0-20.0) ug/mL - Other Results/Comments Other Results/Comments: EXAM: Left hand: Less swelling and erythema. Much less tender over dorsum of the hand. Good, painfree AROM of wrist and digits. N/V ok Packing removed without problem. Only scant serous drainage from wound. No flocculence noted over dorsum of hand Sepsis Event Note (H) - Evaluation Current Stage of Sepsis: Sepsis Possible source of Sepsis: positive: Skin/soft tissue - Sepsis Criteria Sepsis Criteria: Recorded Heart Rate greater than 90 bpm, WBC count greater than 12,000 or less than 4000 Assessment/Plan - Problem List (1) Abscess Impression: Much improved. PLAN: Switch to oral antibiotics, wound dressing changes as needed. On discharge, follow up in clinic for wound check in a week.
--- NOTE | 2019-04-17 16:14 | PROVIDER PROGRESS NOTE ---
Subjective - Prog Note Date Prog Note Date: 04/17/19 - Subjective Pt reports feeling: Improved Subjective: pt report he still has pain on his wound but denies fever, chill, SOB. with nurse together to assess pt's wound, pt has two close sites wound, both still has drainage, but erythema and drainage are both reduced, swelling is also reduced. wound culture and sensitive study is pending. discussed with orthopedics , will switch to PO antibiotics, plan d/c pt on tomorrow. Current Medications - Current Medications Current Medications: Active Medications Acetaminophen (Tylenol) 650 mg PO Q4HR PRN PRN Reason: Pain 1 to 4 Last Admin: 04/17/19 08:14 Dose: 650 mg Cephalexin (Keflex) 250 mg PO Q6HR [facility] Enoxaparin Sodium (Lovenox) 40 mg SUBQ DAILY [facility] Last Admin: 04/17/19 08:17 Dose: Not Given Famotidine (Pepcid) 20 mg PO BID [facility] Last Admin: 04/17/19 08:14 Dose: 20 mg Hydromorphone HCl (Dilaudid Inj Carp) 1 mg IVP Q2HR PRN PRN Reason: PAIN Last Admin: 04/17/19 14:01 Dose: 1 mg Ondansetron HCl (Zofran Inj) 4 mg IVP Q6HR PRN PRN Reason: Nausea / Vomiting Last Admin: 04/16/19 00:57 Dose: 4 mg Oxycodone HCl (Roxicodone) 5 mg PO Q4HR PRN PRN Reason: Pain 5 to 7 Last Admin: 04/17/19 08:15 Dose: 5 mg Polyethylene Glycol (Miralax) 17 gm PO DAILY [facility] Last Admin: 04/17/19 08:17 Dose: 17 gm Sodium Chloride (Normal Saline Flush 0.9%) 10 ml IVP PRN PRN PRN Reason: NEEDED PER PROVIDER ORDERS Last Admin: 04/17/19 14:04 Dose: 10 ml Sodium Chloride (Normal Saline Flush 0.9%) 10 ml IVP 0100,0900,1700 [facility] Last Admin: 04/17/19 08:18 Dose: Not Given Trimethoprim/Sulfamethoxazole (Bactrim Ds 800/160) 1 tab PO BID [facility] Aripiprazole [Abilify] 30 mg PO DAILY 04/16/19 Doxepin [SINEquan] 25 mg PO QPM 04/16/19 Fluoxetine HCl 60 mg PO DAILY 04/16/19 Trazodone HCl 300 mg PO QPM 04/16/19 Objective - Vital Signs/Intake & Output Reviewed Vital Signs: Yes Vital Signs: Vital Signs x48h Temp Pulse Resp BP Pulse Ox 04/17/19 15:45 37.1 C 82 20 134/77 H 98 04/17/19 13:58 37.1 C 100 18 125/76 99 Intake & Output: Intake & Output 04/14/19 04/15/19 04/16/19 04/17/19 23:59 23:59 23:59 23:59 Intake Total 8999.744 2325.667 1450 Output Total 400 1975 1125 Balance 6355.812 9808.667 325 - Objective General Appearance: positive: No acute distress, Alert. negative: Lethargic Eyes Bilateral: positive: Normal inspection, PERRL, No lid inflammation, Conjunctivae nml ENT: positive: ENT inspection nml, Pharynx nml, No signs of dehydration. negative: Purulent nasal drainage, Pharyngeal erythema, Oral lesions Neck: positive: Nml inspection, Thyroid nml, No JVD, Trachea midline. negative: Thyromegaly, Lymphadenopathy (R), Lymphadenopathy (L), Stiff neck, Swelling/bruising, Tracheal deviation Respiratory: positive: Chest non-tender, No respiratory distress. negative: Wheezes, Rales, Rhonchi Cardiovascular: positive: Regular rate & rhythm, No murmur, No gallop. negative: Irregularly irregular, Extrasystoles, Tachycardia, Bradycardia, JVD present, Systolic murmur, Diastolic murmur Peripheral Pulses: 2+ Radial (R), 2+ Radial (L), 2+ Dorsalis pedis (R), 2+ Dorsalis pedis (L) Abdomen: positive: Non-tender, No organomegaly, Nml bowel sounds, No distention. negative: Tenderness, Guarding, Rebound Back: positive: Nml inspection. negative: CVA tenderness (R), CVA tenderness (L) Skin: positive: Warm, Dry, Skin rash, Laceration (cm). negative: Cyanosis, Diaphoresis, Pallor Extremities: positive: Non-tender. negative: Calf tenderness, Joint swelling, Tashia's sign/cords Neurologic/Psychiatric: positive: Oriented x3, Motor nml, Sensation nml, Mood/affect nml. negative: Weakness, Sensory loss, Facial droop, Slurred/abnml speech, Depressed mood/affect - Lab Results Fish Bones: 04/17/19 05:40 04/17/19 05:40 Other Labs: Lab Results x24hrs 04/17/19 04/17/19 04/16/19 Range/Units 05:40 05:40 16:21 WBC 7.9 (4.8-10.8) x10^3/uL RBC 4.61 L (4.70-6.10) 10^6/uL Hgb 12.6 L (14.0-18.0) g/dL Hct 38.6 L (42.0-52.0) % MCV 83.7 (80.0-94.0) fL MCH 27.3 (27.0-31.0) pg MCHC 32.6 (32.0-36.0) g/dL RDW 12.5 (12.0-15.0) % Plt Count 311 (130-450) 10^3/uL MPV 8.6 (7.4-11.4) fL Neut # (Auto) 4.9 (1.5-6.6) 10^3/uL Lymph # (Auto) 1.6 (1.5-3.5) 10^3/uL [place] # (Auto) 1.0 (0.0-1.0) 10^3/uL Eos # (Auto) 0.3 (0.0-0.7) 10^3/uL Baso # (Auto) 0.0 (0.0-0.1) 10^3/uL Absolute Nucleated RBC 0.00 x10^3/uL Nucleated RBC % 0.0 /100WBC Sodium 140 (135-145) mmol/L Potassium 3.8 (3.5-5.0) mmol/L Chloride 103 (101-111) mmol/L Carbon Dioxide 25 (21-32) mmol/L Anion Gap 12.0 (6-13) BUN 10 (6-20) mg/dL Creatinine 0.8 (0.6-1.2) mg/dL Estimated GFR (MDRD) 102 (>89) Glucose 99 (70-100) mg/dL Calcium 8.8 (8.5-10.3) mg/dL Total Bilirubin 0.9 (0.2-1.0) mg/dL AST 16 (10-42) IU/L ALT 28 (10-60) IU/L Alkaline Phosphatase 77 (42-121) IU/L Total Protein 6.8 (6.7-8.2) g/dL Albumin 3.1 L (3.2-5.5) g/dL Globulin 3.7 (2.1-4.2) g/dL Albumin/Globulin Ratio 0.8 L (1.0-2.2) Last Dose Date 04/16/19 Last Dose Time 1015 Vancomycin Trough 14.9 (10.0-20.0) ug/mL ABX Reporting Has patient been on IV antibiotics over the past 48 hours?: Yes Sepsis Event Note (H) - Evaluation Current Stage of Sepsis: Sepsis Possible source of Sepsis: positive: Skin/soft tissue - Sepsis Criteria Sepsis Criteria: Recorded Heart Rate greater than 90 bpm, WBC count greater than 12,000 or less than 4000 Assessment/Plan - Problem List (1) Cellulitis Impression: 04/17 erythema and swelling is reduced. but wound site there is still drainage. pt has significant infection with two site closely together at his left wrist discussed with orthopedics surgeon, switch to PO antibiotics Keflex and Bactrim continue lab and vital monitor 04/16 the erythema and swelling of dorsum of left hand is reduced. pt's pain is better controlled. continue antibiotics blood culture is pending cellulitis on left wrist, unknown the etiology. it is likely infected by staph aureus treat with antibiotics vancomycin and zosyn IVF of NS pain control lab and vital monitor (2) Abscess Conclusion/Plan: 04/17 consult with orthopedics, no procedure today is for pt continue antibiotics followup the sensitivity study, is pending now wound culture reveals positive gram stain with cocci, sensitive study is pending consult with orthopedics, will followup continue antibiotics pt had pus on the admission. ER provider did I/D for pt. wound culture is pending. continue antibiotics pain control (3) Illicit drug use Conclusion/Plan: 04/17, consult with high school social studies tutor to help pt quit the illicit drug abuse. pt told me he is willing to quit advise pt quit illicit drug abuse will UDS to check Qualifiers: Site of cellulitis: extremity Site of cellulitis of extremity: upper extremity Laterality: left Qualified Code(s): L03.114 - Cellulitis of left upper limb
[2019-04-17] MEDS: cephALEXin 250 MG CAPSULE PO SCH (18:20)
[2019-04-17] MEDS: SULFAMETH/TRIMETH DS 800/160 MG TABLET PO SCH (20:14)
[2019-04-18] MEDS: SODIUM CHLORIDE FLUSH 0.9% 10 ML SYRINGE IVP PRN (01:19)
[2019-04-18] MEDS: cephALEXin 250 MG CAPSULE PO SCH ×2 (01:19→05:51)
[2019-04-18] MEDS: SODIUM CHLORIDE FLUSH 0.9% 10 ML SYRINGE IVP SCH ×3 (01:59→14:40)
[2019-04-18] MEDS: DOXEPIN 25 MG CAPSULE PO SCH ×2 (01:59→22:01)
[2019-04-18] MEDS: oxyCODONE 5 MG TABLET PO PRN ×2 (01:59→16:07)
[2019-04-18 06:00] LABS: BASOPHILS % (AUTO) 0.4 %; EOSINOPHILS # (AUTO) 0.3 10^3/uL (0.0-0.7); EOSINOPHILS % (AUTO) 2.5 %; HGB - HEMOGLOBIN 14.2 g/dL (14.0-18.0); LYMPHOCYTES # (AUTO) 1.8 10^3/uL (1.5-3.5); LYMPHOCYTES % (AUTO) 18.1 %; MEAN CORPUSCULAR HEMOGLOBIN 26.7 pg (27.0-31.0); MEAN CORPUSCULAR HGB CONC 32.3 g/dL (32.0-36.0); MEAN CORPUSCULAR VOLUME 82.5 fL (80.0-94.0); MEAN PLATELET VOLUME 8.1 fL (7.4-11.4); MONOCYTES # (AUTO) 1.2 10^3/uL (0.0-1.0); MONOCYTES % (AUTO) 12.2 %; NEUTROPHILS # (AUTO) 6.8 10^3/uL (1.5-6.6); NEUTROPHILS % (AUTO) 66.1 %; PLT - PLATELET COUNT 374 10^3/uL (130-450); RED BLOOD COUNT 5.32 10^6/uL (4.70-6.10); RED CELL DISTRIBUTION WIDTH 12.5 % (12.0-15.0); WHITE BLOOD COUNT 10.2 x10^3/uL (4.8-10.8)
[2019-04-18 06:14] LABS: ALBUMIN 3.6 g/dL (3.2-5.5); ALBUMIN/GLOBULIN RATIO 0.9 (1.0-2.2); BILIRUBIN,TOTAL 0.7 mg/dL (0.2-1.0); CALCIUM 9.2 mg/dL (8.5-10.3); CREATININE 0.9 mg/dL (0.6-1.2); TOTAL PROTEIN 7.8 g/dL (6.7-8.2)
[2019-04-18] MEDS ORDERED: POTASSIUM CHLORIDE 20 MEQ TABLET PO ONE (07:13)
[2019-04-18] MEDS: SULFAMETH/TRIMETH DS 800/160 MG TABLET PO SCH (10:18)
[2019-04-18] MEDS: POLYETHYLENE GLYCOL 3350 17 GM PACKET PO SCH (10:19)
[2019-04-18] MEDS: FAMOTIDINE 20 MG TABLET PO SCH ×2 (10:19→20:16)
[2019-04-18] MEDS: LORazepam 0.5 MG TABLET PO PRN (10:36)
[2019-04-18] MEDS: PIPERACILLIN/TAZOBACTAM 4.5 GM in SODIUM CHLORIDE 0.9% MINIBAG 100 ML IV SCH ×3 (10:43→22:02)
[2019-04-18] MEDS: ARIPiprazole 5 MG TABLET PO SCH (10:54)
[2019-04-18] MEDS: ENOXAPARIN 40 MG/0.4 ML SYRINGE SUBQ SCH (10:57)
--- NOTE | 2019-04-18 11:41 | PROVIDER PROGRESS NOTE ---
Subjective - Subjective Pt reports feeling: No change Subjective: pt's left hand became warm and hot again. infection sites still had significant drainage. pt's WBC increased again. changing PO antibiotics seems still too early for his severe wound infection. Current Medications - Current Medications Current Medications: Active Medications Acetaminophen (Tylenol) 650 mg PO Q4HR PRN PRN Reason: Pain 1 to 4 Last Admin: 04/17/19 08:14 Dose: 650 mg Aripiprazole (Abilify) 30 mg PO DAILY [facility] Last Admin: 04/18/19 10:54 Dose: 30 mg Doxepin HCl (Sinequan) 25 mg PO QPM [facility] Last Admin: 04/18/19 01:59 Dose: 25 mg Enoxaparin Sodium (Lovenox) 40 mg SUBQ DAILY [facility] Last Admin: 04/18/19 10:57 Dose: 40 mg Famotidine (Pepcid) 20 mg PO BID [facility] Last Admin: 04/18/19 10:19 Dose: 20 mg Hydromorphone HCl (Dilaudid Inj Carp) 1 mg IVP Q2HR PRN PRN Reason: PAIN Last Admin: 04/17/19 21:21 Dose: 1 mg Piperacillin Sod/Tazobactam (Sod 4.5 gm/ Sodium Chloride) 100 mls @ 200 mls/hr IV Q6H [facility] Last Admin: 04/18/19 10:43 Dose: 200 mls/hr Vancomycin HCl 1 gm/ Sodium (Chloride) 250 mls @ 167 mls/hr IV Q8H [facility] Lorazepam (Ativan) 0.5 mg PO Q6H PRN PRN Reason: Anxiety Last Admin: 04/18/19 10:36 Dose: 0.5 mg Ondansetron HCl (Zofran Inj) 4 mg IVP Q6HR PRN PRN Reason: Nausea / Vomiting Last Admin: 04/16/19 00:57 Dose: 4 mg Oxycodone HCl (Roxicodone) 5 mg PO Q4HR PRN PRN Reason: Pain 5 to 7 Last Admin: 04/18/19 01:59 Dose: 5 mg Polyethylene Glycol (Miralax) 17 gm PO DAILY [facility] Last Admin: 04/18/19 10:19 Dose: 17 gm Saccharomyces Boulardii (Florastor) 250 mg PO BIDWM [facility] Sodium Chloride (Normal Saline Flush 0.9%) 10 ml IVP PRN PRN PRN Reason: NEEDED PER PROVIDER ORDERS Last Admin: 04/18/19 01:19 Dose: 10 ml Sodium Chloride (Normal Saline Flush 0.9%) 10 ml IVP 0100,0900,1700 DEISY Last Admin: 04/18/19 10:52 Dose: 10 ml Trazodone HCl (Desyrel) 300 mg PO QPM [facility] Aripiprazole [Abilify] 30 mg PO DAILY 04/16/19 Doxepin [SINEquan] 25 mg PO QPM 04/16/19 Fluoxetine HCl 60 mg PO DAILY 04/16/19 Trazodone HCl 300 mg PO QPM 04/16/19 Objective - Vital Signs/Intake & Output Reviewed Vital Signs: Yes Vital Signs: Vital Signs x48h Temp Pulse Resp BP Pulse Ox 04/18/19 08:31 37.0 C 104 H 18 138/81 H 98 04/18/19 05:55 36.9 C 113 H 18 139/81 H 97 Intake & Output: Intake & Output 04/15/19 04/16/19 04/17/19 04/18/19 23:59 23:59 23:59 23:59 Intake Total 1486.059 2860.667 2320 1700 Output Total 400 1975 1125 Balance 8737.158 5295.667 1195 1700 - Objective General Appearance: positive: No acute distress, Alert. negative: Lethargic Eyes Bilateral: positive: Normal inspection, PERRL, No lid inflammation, Conjunctivae nml ENT: positive: ENT inspection nml, Pharynx nml, No signs of dehydration. negative: Purulent nasal drainage, Pharyngeal erythema, Oral lesions Neck: positive: Nml inspection, Thyroid nml, No JVD, Trachea midline. negative: Thyromegaly, Lymphadenopathy (R), Lymphadenopathy (L), Stiff neck, Swelling/bruising, Tracheal deviation Respiratory: positive: Chest non-tender, No respiratory distress, Breath sounds nml. negative: Wheezes, Rales, Rhonchi Cardiovascular: positive: Regular rate & rhythm, No murmur, No gallop. n egative: Irregularly irregular, Extrasystoles, Tachycardia, Bradycardia, JVD present, Systolic murmur, Diastolic murmur Peripheral Pulses: 2+ Radial (R), 2+ Radial (L), 2+ Dorsalis pedis (R), 2+ Dorsalis pedis (L) Abdomen: positive: Non-tender, No organomegaly, Nml bowel sounds, No distention. negative: Tenderness, Guarding, Rebound Back: positive: Nml inspection. negative: CVA tenderness (R), CVA tenderness (L) Skin: positive: Warm, Dry, Skin rash, Puncture wound. negative: No rash, Cyanosis, Diaphoresis, Pallor Extremities: negative: Calf tenderness, Tashia's sign/cords Neurologic/Psychiatric: positive: Oriented x3, Motor nml, Sensation nml, Mood/affect nml. negative: Weakness, Sensory loss, Facial droop, Slurred/abnml speech, Depressed mood/affect - Lab Results Fish Bones: 04/18/19 04:55 04/18/19 04:55 Other Labs: Lab Results x24hrs 04/18/19 04/18/19 Range/Units 04:55 04:55 WBC 10.2 (4.8-10.8) x10^3/uL RBC 5.32 (4.70-6.10) 10^6/uL Hgb 14.2 (14.0-18.0) g/dL Hct 43.9 (42.0-52.0) % MCV 82.5 (80.0-94.0) fL MCH 26.7 L (27.0-31.0) pg MCHC 32.3 (32.0-36.0) g/dL RDW 12.5 (12.0-15.0) % Plt Count 374 (130-450) 10^3/uL MPV 8.1 (7.4-11.4) fL Neut # (Auto) 6.8 H (1.5-6.6) 10^3/uL Lymph # (Auto) 1.8 (1.5-3.5) 10^3/uL [place] # (Auto) 1.2 H (0.0-1.0) 10^3/uL Eos # (Auto) 0.3 (0.0-0.7) 10^3/uL Baso # (Auto) 0.0 (0.0-0.1) 10^3/uL Absolute Nucleated RBC 0.00 x10^3/uL Nucleated RBC % 0.0 /100WBC Sodium 140 (135-145) mmol/L Potassium 3.4 L (3.5-5.0) mmol/L Chloride 102 (101-111) mmol/L Carbon Dioxide 25 (21-32) mmol/L Anion Gap 13.0 (6-13) BUN 9 (6-20) mg/dL Creatinine 0.9 (0.6-1.2) mg/dL Estimated GFR (MDRD) 89 (>89) Glucose 101 H (70-100) mg/dL Calcium 9.2 (8.5-10.3) mg/dL Total Bilirubin 0.7 (0.2-1.0) mg/dL AST 21 (10-42) IU/L ALT 31 (10-60) IU/L Alkaline Phosphatase 82 (42-121) IU/L Total Protein 7.8 (6.7-8.2) g/dL Albumin 3.6 (3.2-5.5) g/dL Globulin 4.2 (2.1-4.2) g/dL Albumin/Globulin Ratio 0.9 L (1.0-2.2) ABX Reporting Has patient been on IV antibiotics over the past 48 hours?: Yes Sepsis Event Note (H) - Evaluation Current Stage of Sepsis: Sepsis Possible source of Sepsis: positive: Skin/soft tissue - Sepsis Criteria Sepsis Criteria: Recorded Heart Rate greater than 90 bpm, WBC count greater than 12,000 or less than 4000 Assessment/Plan - Problem List (1) Cellulitis Impression: 04/18 pt's infection is still severe clinically, pt had two sites infection close together. wound site still has significant drainage. left arm is warm and hot. continue IVF of Vancomycin and Zosyn wound consult, weekend has no wound consult to see pt nurse dress change PRN followup orthopedics consult 04/17 erythema and swelling is reduced. but wound site there is still drainage. pt has significant infection with two site closely together at his left wrist discussed with orthopedics surgeon, switch to PO antibiotics Keflex and Bactrim continue lab and vital monitor 04/16 the erythema and swelling of dorsum of left hand is reduced. pt's pain is better controlled. continue antibiotics blood culture is pending cellulitis on left wrist, unknown the etiology. it is likely infected by staph aureus treat with antibiotics vancomycin and zosyn IVF of NS pain control lab and vital monitor (2) Abscess Conclusion/Plan: 04/17 consult with orthopedics, no procedure today is for pt continue antibiotics followup the sensitivity study, is pending now wound culture reveals positive gram stain with cocci, sensitive study is pending consult with orthopedics, will followup continue antibiotics pt had pus on the admission. ER provider did I/D for pt. wound culture is pending. continue antibiotics pain control (3) Illicit drug use Conclusion/Plan: 04/17, consult with social service assistant to help pt quit the illicit drug abuse. pt told me he is willing to quit advise pt quit illicit drug abuse will UDS to check (4) hx of psychiatric disorder now pt is stable. pt decline to disclose his psychiatric disorders. reconcile of his home meds, ablify, doxepin, trazodone, fluoxetine. add Ativan PRN for anxiety Qualifiers: Site of cellulitis: extremity Site of cellulitis of extremity: upper extremity Laterality: left Qualified Code(s): L03.114 - Cellulitis of left upper limb
--- NOTE | 2019-04-18 11:44 | PROVIDER PROGRESS NOTE ---
Subjective - Prog Note Date Prog Note Date: 04/18/19 Prog Note Time: 11:43 - Subjective Pt reports feeling: Improved Objective - Vital Signs/Intake & Output Vital Signs: Vital Signs x48h Temp Pulse Resp BP Pulse Ox 04/18/19 08:31 37.0 C 104 H 18 138/81 H 98 04/18/19 05:55 36.9 C 113 H 18 139/81 H 97 Intake & Output: Intake & Output 04/15/19 04/16/19 04/17/19 04/18/19 23:59 23:59 23:59 23:59 Intake Total 0526.914 8834.667 2320 1700 Output Total 400 1975 1125 Balance 8482.774 4069.667 1195 1700 - Lab Results Fish Bones: 04/18/19 04:55 04/18/19 04:55 Other Labs: Lab Results x24hrs 04/18/19 04/18/19 Range/Units 04:55 04:55 WBC 10.2 (4.8-10.8) x10^3/uL RBC 5.32 (4.70-6.10) 10^6/uL Hgb 14.2 (14.0-18.0) g/dL Hct 43.9 (42.0-52.0) % MCV 82.5 (80.0-94.0) fL MCH 26.7 L (27.0-31.0) pg MCHC 32.3 (32.0-36.0) g/dL RDW 12.5 (12.0-15.0) % Plt Count 374 (130-450) 10^3/uL MPV 8.1 (7.4-11.4) fL Neut # (Auto) 6.8 H (1.5-6.6) 10^3/uL Lymph # (Auto) 1.8 (1.5-3.5) 10^3/uL [place] # (Auto) 1.2 H (0.0-1.0) 10^3/uL Eos # (Auto) 0.3 (0.0-0.7) 10^3/uL Baso # (Auto) 0.0 (0.0-0.1) 10^3/uL Absolute Nucleated RBC 0.00 x10^3/uL Nucleated RBC % 0.0 /100WBC Sodium 140 (135-145) mmol/L Potassium 3.4 L (3.5-5.0) mmol/L Chloride 102 (101-111) mmol/L Carbon Dioxide 25 (21-32) mmol/L Anion Gap 13.0 (6-13) BUN 9 (6-20) mg/dL Creatinine 0.9 (0.6-1.2) mg/dL Estimated GFR (MDRD) 89 (>89) Glucose 101 H (70-100) mg/dL Calcium 9.2 (8.5-10.3) mg/dL Total Bilirubin 0.7 (0.2-1.0) mg/dL AST 21 (10-42) IU/L ALT 31 (10-60) IU/L Alkaline Phosphatase 82 (42-121) IU/L Total Protein 7.8 (6.7-8.2) g/dL Albumin 3.6 (3.2-5.5) g/dL Globulin 4.2 (2.1-4.2) g/dL Albumin/Globulin Ratio 0.9 L (1.0-2.2) - Other Results/Comments Other Results/Comments: EXAM: Left hand - much less swollen and red. essentially nontender. No floc culence; scant drainage from wound. Good wrist and hand AROM. N/V ok distally Sepsis Event Note (H) - Evaluation Current Stage of Sepsis: Sepsis Possible source of Sepsis: positive: Skin/soft tissue - Sepsis Criteria Sepsis Criteria: Recorded Heart Rate greater than 90 bpm, WBC count greater than 12,000 or less than 4000 Assessment/Plan - Problem List (1) Abscess Impression: improving PLAN: No change in plans.
[2019-04-18] MEDS: VANCOMYCIN INJ 1 GM in SODIUM CHLORIDE 0.9% 250 ML IV SCH ×2 (12:40→20:15)
[2019-04-18] MEDS: FLUoxetine 10 MG CAPSULE PO SCH (12:52)
[2019-04-18] MEDS: SACCHAROMYCES BOULARDII 250 MG CAPSULE PO SCH (16:07)
[2019-04-18] MEDS ORDERED: DOXEPIN 25 MG CAPSULE PO SCH (21:00)
[2019-04-18] MEDS: traZODone 50 MG TABLET PO SCH (22:01)
[2019-04-19] MEDS: ACETAMINOPHEN 325 MG TABLET PO PRN ×6 (00:46→23:29)
[2019-04-19] MEDS: oxyCODONE 5 MG TABLET PO PRN ×6 (00:47→23:30)
[2019-04-19] MEDS: SODIUM CHLORIDE FLUSH 0.9% 10 ML SYRINGE IVP SCH ×3 (00:48→17:23)
[2019-04-19] MEDS: PIPERACILLIN/TAZOBACTAM 4.5 GM in SODIUM CHLORIDE 0.9% MINIBAG 100 ML IV SCH ×5 (04:30→23:23)
[2019-04-19] MEDS: VANCOMYCIN INJ 1 GM in SODIUM CHLORIDE 0.9% 250 ML IV SCH ×3 (05:00→21:38)
[2019-04-19 05:04] LABS: BASOPHILS % (AUTO) 0.3 %; EOSINOPHILS % (AUTO) 1.5 %; HGB - HEMOGLOBIN 12.3 g/dL (14.0-18.0); LYMPHOCYTES % (AUTO) 14.1 %; MEAN CORPUSCULAR HEMOGLOBIN 28.6 pg (27.0-31.0); MEAN CORPUSCULAR HGB CONC 34.6 g/dL (32.0-36.0); MEAN CORPUSCULAR VOLUME 82.8 fL (80.0-94.0); MEAN PLATELET VOLUME 8.4 fL (7.4-11.4); MONOCYTES % (AUTO) 13.4 %; NEUTROPHILS % (AUTO) 69.9 %; PLT - PLATELET COUNT 321 10^3/uL (130-450); RED CELL DISTRIBUTION WIDTH 12.5 % (12.0-15.0); WHITE BLOOD COUNT 11.6 x10^3/uL (4.8-10.8)
[2019-04-19 05:13] LABS: ABNORMAL LYMPHS % (MANUAL) 0 %; BAND NEUTROPHILS % (MANUAL) 0 %
[2019-04-19 05:16] LABS: ALBUMIN 3.1 g/dL (3.2-5.5); ALBUMIN/GLOBULIN RATIO 0.9 (1.0-2.2); BILIRUBIN,TOTAL 0.6 mg/dL (0.2-1.0); CALCIUM 8.6 mg/dL (8.5-10.3); CREATININE 1.1 mg/dL (0.6-1.2); TOTAL PROTEIN 6.5 g/dL (6.7-8.2)
[2019-04-19 05:45] LABS: EOSINOPHILS # (MANUAL) 0.3 10^3/uL (0-0.7); LYMPHOCYTES # (MANUAL) 1.3 10^3/uL (1.5-3.5); LYMPHOCYTES % (MANUAL) 11 %; MONOCYTES # (MANUAL) 0.8 10^3/uL (0.0-1.0); NEUTROPHILS # (MANUAL) 9.2 10^3/uL (1.5-6.6); NEUTROPHILS % (MANUAL) 79 %; PLATELET ESTIMATE, MANUAL NORMAL (130-450,000) (NORMAL); PLATELET MORPHOLOGY NORMAL APPEARANCE (NORMAL); RBC MORPHOLOGY (MULTIPLE) NORMAL APPEARANCE (NORMAL)
[2019-04-19 05:46] LABS: DIFFERENTIAL COMMENT MANUAL DIFFERENTIAL
[2019-04-19] MEDS ORDERED: POTASSIUM CHLORIDE 20 MEQ TABLET PO ONE (07:22)
[2019-04-19] MEDS: SACCHAROMYCES BOULARDII 250 MG CAPSULE PO SCH ×2 (08:57→17:22)
[2019-04-19] MEDS: ENOXAPARIN 40 MG/0.4 ML SYRINGE SUBQ SCH (08:57)
[2019-04-19] MEDS: FLUoxetine 10 MG CAPSULE PO SCH (09:00)
[2019-04-19] MEDS: FAMOTIDINE 20 MG TABLET PO SCH ×2 (09:00→21:42)
[2019-04-19] MEDS: ARIPiprazole 5 MG TABLET PO SCH (09:01)
[2019-04-19] MEDS: POLYETHYLENE GLYCOL 3350 17 GM PACKET PO SCH (09:03)
[2019-04-19] MEDS: SODIUM CHLORIDE 0.9% 1,000 ML IV SCH ×2 (09:04→22:07)
--- NOTE | 2019-04-19 12:04 | PROVIDER PROGRESS NOTE ---
Subjective - Prog Note Date Prog Note Date: 04/19/19 - Subjective Pt reports feeling: Improved Subjective: pt report his pain is improving, swelling is reduced, drainage is reduce. pt report he is better than yesterday. His WBC is still high than normal. he failed on PO antibiotics. pt is currently on IV drug abuse. The Optional is that let pt finish his IV antibiotics at hospital. after pt is stable, then D/C pt with PO antibiotics Since pt failed PO antibiotics, his WBC is still high than normal, pt will be benefit to continue to have IV antibiotics in hospital for one more day. Current Medications - Current Medications Current Medications: Active Medications Acetaminophen (Tylenol) 650 mg PO Q4HR PRN PRN Reason: Pain 1 to 4 Last Admin: 04/19/19 08:58 Dose: 650 mg Aripiprazole (Abilify) 30 mg PO DAILY [facility] Last Admin: 04/19/19 09:01 Dose: 30 mg Doxepin HCl (Sinequan) 25 mg PO QPM [facility] Last Admin: 04/18/19 22:01 Dose: 25 mg Enoxaparin Sodium (Lovenox) 40 mg SUBQ DAILY [facility] Last Admin: 04/19/19 08:57 Dose: 40 mg Famotidine (Pepcid) 20 mg PO BID [facility] Last Admin: 04/19/19 09:00 Dose: 20 mg Fluoxetine HCl (Prozac) 60 mg PO DAILY [facility] Last Admin: 04/19/19 09:00 Dose: 60 mg Hydromorphone HCl (Dilaudid Inj Carp) 1 mg IVP Q2HR PRN PRN Reason: PAIN Last Admin: 04/17/19 21:21 Dose: 1 mg Piperacillin Sod/Tazobactam (Sod 4.5 gm/ Sodium Chloride) 100 mls @ 200 mls/hr IV Q6H [facility] Last Infusion: 04/19/19 05:00 Dose: Infused Vancomycin HCl 1 gm/ Sodium (Chloride) 250 mls @ 167 mls/hr IV Q8H [facility] Last Infusion: 04/19/19 06:30 Dose: Infused Sodium Chloride (Normal Saline 0.9%) 1,000 mls @ 125 mls/hr IV .Q8H [facility] Stop: 04/19/19 23:59 Last Admin: 04/19/19 09:04 Dose: 125 mls/hr Lorazepam (Ativan) 0.5 mg PO Q6H PRN PRN Reason: Anxiety Last Admin: 04/18/19 10:36 Dose: 0.5 mg Ondansetron HCl (Zofran Inj) 4 mg IVP Q6HR PRN PRN Reason: Nausea / Vomiting Last Admin: 04/16/19 00:57 Dose: 4 mg Oxycodone HCl (Roxicodone) 5 mg PO Q4HR PRN PRN Reason: Pain 5 to 7 Last Admin: 04/19/19 08:59 Dose: 5 mg Polyethylene Glycol (Miralax) 17 gm PO DAILY [facility] Last Admin: 04/19/19 09:03 Dose: 17 gm Saccharomyces Boulardii (Florastor) 250 mg PO BIDWM [facility] Last Admin: 04/19/19 08:57 Dose: 250 mg Sodium Chloride (Normal Saline Flush 0.9%) 10 ml IVP PRN PRN PRN Reason: NEEDED PER PROVIDER ORDERS Last Admin: 04/18/19 01:19 Dose: 10 ml Sodium Chloride (Normal Saline Flush 0.9%) 10 ml IVP 0100,0900,1700 [facility] Last Admin: 04/19/19 09:03 Dose: 10 ml Trazodone HCl (Desyrel) 300 mg PO QPM [facility] Last Admin: 04/18/19 22:01 Dose: 300 mg Aripiprazole [Abilify] 30 mg PO DAILY 04/16/19 Doxepin [SINEquan] 25 mg PO QPM 04/16/19 Fluoxetine HCl 60 mg PO DAILY 04/16/19 Trazodone HCl 300 mg PO QPM 04/16/19 Objective - Vital Signs/Intake & Output Reviewed Vital Signs: Yes Vital Signs: Vital Signs x48h Temp Pulse Resp BP Pulse Ox 04/19/19 07:52 36.9 C 74 18 100/55 L 95 04/19/19 04:00 37.3 C 85 16 117/59 L 99 Intake & Output: Intake & Output 04/16/19 04/17/19 04/18/19 04/19/19 23:59 23:59 23:59 23:59 Intake Total 4941.667 2320 4150 710 Output Total 6886 1125 475 Balance 2966.667 1195 3675 710 - Objective General Appearance: positive: No acute distress, Alert Eyes Bilateral: positive: Normal inspection, PERRL, No lid inflammation, Conjunctivae nml ENT: positive: ENT inspection nml, Pharynx nml, No signs of dehydration. negative: Purulent nasal drainage, Pharyngeal erythema, Oral lesions Neck: positive: Nml inspection, Thyroid nml, No JVD, Trachea midline. negative: Thyromegaly, Lymphadenopathy (R), Lymphadenopathy (L), Stiff neck, Swelling/bruising, Tracheal deviation Respiratory: positive: Chest non-tender, No respiratory distress, Breath sounds nml. negative: Wheezes, Rales, Rhonchi Cardiovascular: positive: Regular rate & rhythm, No murmur, No gallop. negative: Irregularly irregular, Extrasystoles, Tachycardia, Bradycardia, JVD present, Systolic murmur Peripheral Pulses: 2+ Radial (R), 2+ Radial (L), 2+ Dorsalis pedis (R), 2+ Dorsalis pedis (L) Abdomen: positive: Non-tender, No organomegaly, Nml bowel sounds, No distention. negative: Tenderness, Guarding, Rebound Back: positive: Nml inspection. negative: CVA tenderness (R), CVA tenderness (L) Skin: positive: Warm, Dry, Skin rash (significant reduced), Puncture wound (wound site and drainage are significantly reduced). negative: Cyanosis, Diaphoresis, Pallor Extremities: negative: Calf tenderness, Tashia's sign/cords Neurologic/Psychiatric: positive: Oriented x3, Motor nml, Sensation nml, Mood/affect nml. negative: Weakness, Sensory loss, Facial droop, Slurred/abnml speech, Depressed mood/affect - Lab Results Fish Bones: 04/19/19 04:45 04/19/19 04:45 Other Labs: Lab Results x24hrs 04/19/19 04/19/19 Range/Units 04:45 04:45 WBC 11.6 H (4.8-10.8) x10^3/uL RBC 4.30 L (4.70-6.10) 10^6/uL Hgb 12.3 L (14.0-18.0) g/dL Hct 35.6 L (42.0-52.0) % MCV 82.8 (80.0-94.0) fL MCH 28.6 (27.0-31.0) pg MCHC 34.6 (32.0-36.0) g/dL RDW 12.5 (12.0-15.0) % Plt Count 321 (130-450) 10^3/uL MPV 8.4 (7.4-11.4) fL Neut # (Auto) Not Reportable Lymph # (Auto) Not Reportable [place] # (Auto) Not Reportable Eos # (Auto) Not Reportable Baso # (Auto) Not Reportable Absolute Nucleated RBC Not Reportable Total Counted 100 Band Neuts % (Manual) 0 (0 - 10) % Abnorm Lymph % (Manual) 0 % Nucleated RBC % Not Reportable Neutrophils # (Manual) 9.2 H (1.5-6.6) 10^3/uL Lymphocytes # (Manual) 1.3 L (1.5-3.5) 10^3/uL Monocytes # (Manual) 0.8 (0.0-1.0) 10^3/uL Eosinophils # (Manual) 0.3 (0-0.7) 10^3/uL Basophils # (Manual) 0.0 (0-0.1) 10^3/uL Differential Comment MANUAL DIFFERENTIAL WBC Morphology NORMAL APPEARANCE (NORMAL) Platelet Estimate NORMAL (130-450,000) (NORMAL) Platelet Morphology NORMAL APPEARANCE (NORMAL) RBC Morph Micro Appear NORMAL APPEARANCE (NORMAL) Sodium 136 (135-145) mmol/L Potassium 3.2 L (3.5-5.0) mmol/L Chloride 101 (101-111) mmol/L Carbon Dioxide 24 (21-32) mmol/L Anion Gap 11.0 (6-13) BUN 10 (6-20) mg/dL Creatinine 1.1 (0.6-1.2) mg/dL Estimated GFR (MDRD) 71 L (>89) Glucose 127 H (70-100) mg/dL Calcium 8.6 (8.5-10.3) mg/dL Total Bilirubin 0.6 (0.2-1.0) mg/dL AST 18 (10-42) IU/L ALT 27 (10-60) IU/L Alkaline Phosphatase 71 (42-121) IU/L Total Protein 6.5 L (6.7-8.2) g/dL Albumin 3.1 L (3.2-5.5) g/dL Globulin 3.4 (2.1-4.2) g/dL Albumin/Globulin Ratio 0.9 L (1.0-2.2) ABX Reporting Has patient been on IV antibiotics over the past 48 hours?: Yes Sepsis Event Note (H) - Evaluation Current Stage of Sepsis: Sepsis Possible source of Sepsis: positive: Skin/soft tissue - Sepsis Criteria Sepsis Criteria: Recorded Heart Rate greater than 90 bpm, WBC count greater than 12,000 or less than 4000 Assessment/Plan - Problem List (1) Cellulitis Impression: 04/19 clinically pt's wound is better than yesterday significantly. swelling, warmth, drainage, and erythema are reduced. Since pt failed PO antibiotics, his WBC is still high than normal, pt will be benefit to continue to have IV antibiotics in hospital 04/18 pt's infection is still severe clinically, pt had two sites infection close together. wound site still has significant drainage. left arm is warm and hot. continue IVF of Vancomycin and Zosyn wound consult, weekend has no wound consult to see pt nurse dress change PRN followup orthopedics consult 04/17 erythema and swelling is reduced. but wound site there is still drainage. pt has significant infection with two site closely together at his left wrist discussed with orthopedics surgeon, switch to PO antibiotics Keflex and Bactrim continue lab and vital monitor 04/16 the erythema and swelling of dorsum of left hand is reduced. pt's pain is better controlled. continue antibiotics blood culture is pending cellulitis on left wrist, unknown the etiology. it is likely infected by staph aureus treat with antibiotics vancomycin and zosyn IVF of NS pain control lab and vital monitor (2) Abscess Conclusion/Plan: 04/19 drainage is better. pt had I/D done at ER followup absence management consultant, for management 04/17 consult with orthopedics, no procedure today is for pt continue antibiotics followup the sensitivity study, is pending now wound culture reveals positive gram stain with cocci, sensitive study is pending consult with orthopedics, will followup continue antibiotics pt had pus on the admission. ER provider did I/D for pt. wound culture is pending. continue antibiotics pain control (3) Illicit drug use Conclusion/Plan: 04/17, consult with group social worker to help pt quit the illicit drug abuse. pt told me he is willing to quit advise pt quit illicit drug abuse will UDS to check (4) hx of psychiatric disorder 04/19 pt is stable now. continue his home psychiatric meds continue closely monitor pt. now pt is stable. pt decline to disclose his psychiatric disorders. reconcile of his home meds, ablify, doxepin, trazodone, fluoxetine. add Ativan PRN for anxiety Qualifiers: Site of cellulitis: extremity Site of cellulitis of extremity: upper extremity Laterality: left Qualified Code(s): L03.114 - Cellulitis of left upper limb
[2019-04-19] MEDS: DOXEPIN 25 MG CAPSULE PO SCH (21:42)
[2019-04-19] MEDS: traZODone 50 MG TABLET PO SCH (21:42)
[2019-04-20] MEDS: SODIUM CHLORIDE FLUSH 0.9% 10 ML SYRINGE IVP SCH ×2 (02:00→09:18)
[2019-04-20] MEDS: VANCOMYCIN INJ 1 GM in SODIUM CHLORIDE 0.9% 250 ML IV SCH ×2 (04:09→12:41)
[2019-04-20] MEDS: LORazepam 0.5 MG TABLET PO PRN (04:16)
[2019-04-20] MEDS: oxyCODONE 5 MG TABLET PO PRN ×2 (04:16→09:13)
[2019-04-20 04:56] LABS: BASOPHILS % (AUTO) 0.6 %; EOSINOPHILS # (AUTO) 0.2 10^3/uL (0.0-0.7); EOSINOPHILS % (AUTO) 3.5 %; HGB - HEMOGLOBIN 11.9 g/dL (14.0-18.0); LYMPHOCYTES # (AUTO) 1.7 10^3/uL (1.5-3.5); LYMPHOCYTES % (AUTO) 24.8 %; MEAN CORPUSCULAR HEMOGLOBIN 27.4 pg (27.0-31.0); MEAN CORPUSCULAR HGB CONC 32.2 g/dL (32.0-36.0); MEAN PLATELET VOLUME 8.5 fL (7.4-11.4); MONOCYTES # (AUTO) 1.1 10^3/uL (0.0-1.0); MONOCYTES % (AUTO) 16.6 %; NEUTROPHILS # (AUTO) 3.5 10^3/uL (1.5-6.6); NEUTROPHILS % (AUTO) 52.7 %; PLT - PLATELET COUNT 306 10^3/uL (130-450); RED BLOOD COUNT 4.34 10^6/uL (4.70-6.10); WHITE BLOOD COUNT 6.6 x10^3/uL (4.8-10.8)
[2019-04-20 05:09] LABS: ALBUMIN 3.1 g/dL (3.2-5.5); ALBUMIN/GLOBULIN RATIO 0.8 (1.0-2.2); BILIRUBIN,TOTAL 0.4 mg/dL (0.2-1.0); CALCIUM 8.9 mg/dL (8.5-10.3); TOTAL PROTEIN 6.8 g/dL (6.7-8.2)
[2019-04-20] MEDS: PIPERACILLIN/TAZOBACTAM 4.5 GM in SODIUM CHLORIDE 0.9% MINIBAG 100 ML IV SCH ×2 (05:55→11:06)
[2019-04-20 08:00] VITALS: BP 129/76
[2019-04-20] MEDS: SACCHAROMYCES BOULARDII 250 MG CAPSULE PO SCH (09:12)
[2019-04-20] MEDS: ENOXAPARIN 40 MG/0.4 ML SYRINGE SUBQ SCH (09:12)
[2019-04-20] MEDS: FLUoxetine 10 MG CAPSULE PO SCH (09:13)
[2019-04-20] MEDS: FAMOTIDINE 20 MG TABLET PO SCH (09:14)
[2019-04-20] MEDS: ACETAMINOPHEN 325 MG TABLET PO PRN (09:14)
[2019-04-20] MEDS: POLYETHYLENE GLYCOL 3350 17 GM PACKET PO SCH (09:18)
--- NOTE | 2019-04-20 10:48 | Discharge Plan ---
Discharge Plan Problem Reviewed?: Yes Disposition: Home, Self Care Condition: Good Prescriptions: oxyCODONE [Roxicodone] 5 mg PO Q4HR PRN #21 tablet PRN Reason: Pain 5 to 7 Cephalexin [Keflex] 500 mg PO BID #10 capsule Saccharomyces Boulardii [Florastor] 250 mg PO BID #60 capsule Sulfamethox/Trimeth 800/160 [Bactrim Ds] 1 each PO BID #10 tablet Diet: Regular Activity Restrictions: Activity as Tolerated Shower Restrictions: No Health Concerns: Left wrist cellulitis Substance abuse Stress at home Medical compliance Plan of Treatment: Continue 5 more days of antibiotics at home Seek counseling for ongoing drug use Come to the [facility] wound care clinic, see Dr. Angeles as planned on 04/22 Keep your left wrist elevated, clean and dry Care Goals: Avoid hospital stays Cure infection Avoid further drug use Follow-Up Care: [facility] Clinic - Wound/Ostomy No Smoking: If you smoke, Please STOP! Call for help.
[2019-04-20] MEDS: ARIPiprazole 5 MG TABLET PO SCH (11:03)
--- NOTE | 2019-04-20 11:22 | PROVIDER PROGRESS NOTE ---
Subjective - Prog Note Date Prog Note Date: 04/20/19 Prog Note Time: 11:19 - Subjective Pt reports feeling: Improved (No new problem. Less hand pain) Objective - Vital Signs/Intake & Output Vital Signs: Vital Signs x48h Temp Pulse Resp BP Pulse Ox 04/20/19 07:59 36.7 C 84 20 129/76 96 Intake & Output: Intake & Output 04/17/19 04/18/19 04/19/19 04/20/19 23:59 23:59 23:59 23:59 Intake Total 2320 4150 5528 1190 Output Total 1125 475 Balance 1195 3675 5528 1190 - Lab Results Fish Bones: 04/20/19 04:40 04/20/19 04:40 Other Labs: Lab Results x24hrs 04/20/19 04/20/19 Range/Units 04:40 04:40 WBC 6.6 (4.8-10.8) x10^3/uL RBC 4.34 L (4.70-6.10) 10^6/uL Hgb 11.9 L (14.0-18.0) g/dL Hct 36.9 L (42.0-52.0) % MCV 85.0 (80.0-94.0) fL MCH 27.4 (27.0-31.0) pg MCHC 32.2 (32.0-36.0) g/dL RDW 13.0 (12.0-15.0) % Plt Count 306 (130-450) 10^3/uL MPV 8.5 (7.4-11.4) fL Neut # (Auto) 3.5 (1.5-6.6) 10^3/uL Lymph # (Auto) 1.7 (1.5-3.5) 10^3/uL [place] # (Auto) 1.1 H (0.0-1.0) 10^3/uL Eos # (Auto) 0.2 (0.0-0.7) 10^3/uL Baso # (Auto) 0.0 (0.0-0.1) 10^3/uL Absolute Nucleated RBC 0.00 x10^3/uL Nucleated RBC % 0.0 /100WBC Sodium 145 (135-145) mmol/L Potassium 3.8 (3.5-5.0) mmol/L Chloride 110 (101-111) mmol/L Carbon Dioxide 25 (21-32) mmol/L Anion Gap 10.0 (6-13) BUN 9 (6-20) mg/dL Creatinine 1.0 (0.6-1.2) mg/dL Estimated GFR (MDRD) 79 L (>89) Glucose 152 H (70-100) mg/dL Calcium 8.9 (8.5-10.3) mg/dL Total Bilirubin 0.4 (0.2-1.0) mg/dL AST 19 (10-42) IU/L ALT 28 (10-60) IU/L Alkaline Phosphatase 78 (42-121) IU/L Total Protein 6.8 (6.7-8.2) g/dL Albumin 3.1 L (3.2-5.5) g/dL Globulin 3.7 (2.1-4.2) g/dL Albumin/Globulin Ratio 0.8 L (1.0-2.2) - Other Results/Comments Other Results/Comments: EXAM: Hand- less swelling and redness. Open dorsal wound is about 3 mm with scant drainage. No flocculence; minimally tender wrist. Good wrist and hand motion without pain Sepsis Event Note (H) - Evaluation Current Stage of Sepsis: Sepsis Possible source of Sepsis: positive: Skin/soft tissue - Sepsis Criteria Sepsis Criteria: Recorded Heart Rate greater than 90 bpm, WBC count greater than 12,000 or less than 4000 Assessment/Plan - Problem List (1) Abscess Impression: Improved. No persistent abscess PLAN: Discharge home with oral antibiotics and daily dressing changes as needed. Follow up for wound check in 5-7 days.
--- NOTE | 2019-04-20 11:24 | DISCHARGE SUMMARY ---
Discharge Summary Admit Date: 04/15/19 Discharge Date: 04/20/19 Discharging Provider: GUILLERMO Pickard Primary Care Provider: Lashonda Angeles Code Status: Attempt Resuscitation Condition at Discharge: Good Discharge Disposition: 01 Home, Self Care - DIAGNOSES Admission Diagnoses: Cellulitis Current smoker Illicit drug use Discharge Diagnoses with Status of Each Condition: Cellulitis of left wrist- new on this admission, consulted with ortho surgery, and wound care, continue PO antibiotics at home Abscess- Status post I & D to left anterior wrist, continue antibiotics Acute joint pain- short course of oxycodone for home use, #21 Illicit drug use- Encouraged cessation, no current AODA counselor Normocytic anemia- chronic, stable Encounter for wound care- WCON nurse, see chart for pictures, improved, MAC wound ordered prior to discharge Insomnia- chronic, stable Depression-chronic, stable PTSD-chronic, stable Medical [id number], stable Hepatitis C-chronic, stable Tobacco dependence in remission-chronic, stable - HPI History of Present Illness: Michael Dsouza is a 48-year old male with a past medical history of substance abuse including marijuana, methamphetamine, & heroin, depression, anxiety, PTSD, bipolar disorder, hepatitis C, and IV drug abuse. He presented to the ER with complaints of left wrist infection with increased pain, swelling, redness, and loss of function, which began about 3-4 days ago. He initially denied injecting drugs near this area, and later admitted to this. On initial exam, the erythema was noted from his left wrist, extending up to the left arm. He admitted to the provider, that he does in fact use heroin, but he stated, " I usually shoot up on my arms, not near the wrist." The ER provider performed an I/D, which was sent for culture, with minimal drainage noted on the gauze wrap at the time of admission. The patient complained of suspected fevers and chills at home, but did not take his temperature. Vital signs on arrival to the ED were; temp of 37.9 C, blood pressure 152/72, heart rate 103, and on room air. Labs showed an elevated neut # of 14.6, an elevated WBC of 18.7, no electrolyte abnormalities, a drug screen showed positive cannabinoid, benzodiazepine, tricyclics, and amphetamine. He denied chest pain, cough, shortness of breath, headache, abdominal pain, or dizziness. He was admitted to inpatient for further IV antibiotic treatment and a possible orthopedic surgery consult. - CONSULTS | PROCEDURES Consultations: Orthopedic surgery- Dr. Marsh, AIDE- Karissa Schulte NP Procedures: Ortho: Switch to oral antibiotics, wound dressing changes as needed. On discharge, follow up in clinic for wound check in a week. WCON: Patient to change dressing twice weekly. Patient to follow-up in [facility] clinic for wound assessment and management because of high risk for reinfection and poor wound healing- [facility] wound care consult placed for outpatient follow up. - HOSPITAL COURSE Hospital Course: (1) Cellulitis of left wrist- The patient's wound showed improvement each day with significantly less swelling, warmth, drainage, and erythema. He underwent an I & D of the left wrist and wound cultures showed normal sam with no identifiable pathogen. He was treated with vancomycin and zosyn, IVFs, and his pain was managed with oxycodone. Wound care was consulted, see chart for pictures, who recommends outpatient follow up in the [facility] clinic. He has been instructed to continue PO antibiotics at home for the next 5 days since both blood cultures were negative and there is thought to be no bone involvement. (2) Abscess- The patient underwent an I & D while in the ED, and an orthopedic consult was made to evaluate for bone involvement which was normal, and blood cultures x2 were negative. This abscess was much improved upon discharge. (3) Illicit drug use- A social work consult was made, to manage his illicit drug use, information was given. (4) hx of psychiatric disorder- The patient did not elaborate on his individual illnesses, but after a review of outside records, depression, PTSD, and bipolar was part of his past medical history. He remained on his home meds of, ablify, doxepin, trazodone, fluoxetine. Ativan was added PRN for anxiety. Disposition- The patient had a resolution of his fevers, and his WBC count was normal at 6.6 upon discharge. The patient notes that his swelling and pain is much less in his left wrist. He has a PCP appointment on 04/22, and was agreeable to continuing PO antibiotics for the next few days. - ALLERGIES Allergies/Adverse Reactions: Allergies Allergy/AdvReac Type Severity Reaction Status Date / Time No Known Drug Allergies Allergy Verified 04/15/19 14:16 - MEDICATIONS Home Medications: Ambulatory Orders Medication Instructions Recorded Confirmed Aripiprazole [Abilify] 30 mg PO DAILY 04/16/19 04/16/19 Doxepin [SINEquan] 25 mg PO QPM 04/16/19 04/16/19 Fluoxetine HCl 60 mg PO DAILY 04/16/19 04/16/19 Trazodone HCl 300 mg PO QPM 04/16/19 04/16/19 Cephalexin [Keflex] 500 mg PO BID #10 capsule 04/20/19 Saccharomyces Boulardii [Florastor] 250 mg PO BID #60 capsule 04/20/19 Sulfamethox/Trimeth 800/160 1 each PO BID #10 tablet 04/20/19 [Bactrim Ds] oxyCODONE [Roxicodone] 5 mg PO Q4HR PRN #21 tablet 04/20/19 - PHYSICAL EXAM AT DISCHARGE General Appearance: positive: No acute distress, Alert Eyes Bilateral: positive: PERRL ENT: positive: ENT inspection nml, Pharynx nml Neck: positive: Thyroid nml, No JVD, Trachea midline Respiratory: positive: Chest non-tender, No respiratory distress, Breath sounds nml Cardiovascular: positive: Regular rate & rhythm, No gallop Peripheral Pulses: positive: 2+ Abdomen: positive: Non-tender, Nml bowel sounds Back: positive: Nml inspection Skin: positive: Color nml, No rash, Warm, Dry Extremities: positive: Non-tender, Full ROM, Pedal edema, Joint swelling (left wrist- see chart for outgoing pictures) Neurologic/Psychiatric: positive: Oriented x3, CN's nml (2-12), Motor nml, Sensation nml, Depressed mood/affect Reflexes: Bicep (R): 3+, Bicep (L): 3+ - LABS Result Diagrams: 04/20/19 04:40 04/20/19 04:40 - SEPSIS Current Stage of Sepsis: Ruled out - FOLLOW UP Follow Up: Disposition: Home, Self Care Condition: Good Prescriptions: oxyCODONE [Roxicodone] 5 mg PO Q4HR PRN #21 tablet PRN Reason: Pain 5 to 7 Cephalexin [Keflex] 500 mg PO BID #10 capsule; Saccharomyces Boulardii [Florastor] 250 mg PO BID #60 capsule; Sulfamethox/Trimeth 800/160 [Bactrim Ds] 1 each PO BID #10 tablet Diet: Regular Health Concerns: Left wrist cellulitis Substance abuse Stress at home Medical compliance Plan of Treatment: Continue 5 more days of antibiotics at home Seek counseling for ongoing drug use Come to the [facility] wound care clinic, see Dr. Angeles as planned on 04/22 Keep your left wrist elevated, clean and dry Care Goals: Avoid hospital stays Cure infection Avoid further drug use Follow-Up Care: [facility] Clinic - Wound/Ostomy - TIME SPENT Time Spent in Discharge (Minutes): 55
== END 2019-04-20 12:55 | disposition home or self-care (01) | DRG 603 ==
LOC: ED 14:11 → MS2 17:38
PROVIDERS: ADMIT Nurse Practitioner Gerontology; ATTEND Nurse Practitioner
DX: L03.114 Cellulitis of left upper limb (principal); L02.414 Cutaneous abscess of left upper limb; M25.532 Pain in left wrist; D64.9 Anemia, unspecified; F43.12 Post-traumatic stress disorder, chronic; B18.2 Chronic viral hepatitis C; F12.10 Cannabis abuse, uncomplicated; F15.10 Other stimulant abuse, uncomplicated; F11.10 Opioid abuse, uncomplicated; F31.9 Bipolar disorder, unspecified; F41.9 Anxiety disorder, unspecified; G47.00 Insomnia, unspecified; F17.201 Nicotine dependence, unspecified, in remission; Z79.899 Other long term (current) drug therapy
CPT/HCPCS: 10060; 36415; 80048; 80053; 80202; 80306; 83605; 83735; 85025; 87040; 87070; 87205; 90471; 90715; 99284; 99285; A9270; J1170; J1650; J3370; 85027

== ENCOUNTER 2019-11-09 04:18 | Outpatient (CLI) | payer MEDICAID | END 2019-11-09 04:19 | disposition critical access hospital (66) | LOC: EMS 04:18 | PROVIDERS: ATTEND Surgery | DX: T43.212A Poisoning by selective serotonin and norepinephrine reuptake inhibitors, intentional self-harm, initial encounter (principal); R11.0 Nausea; R53.83 Other fatigue | CPT/HCPCS: A0425; A0427; A0999 ==

== ENCOUNTER 2019-11-09 04:42 | Observation (INO) | payer MEDICAID ==
--- NOTE | 2019-11-09 04:27 | ED Physician Documentation ---
History of Present Illness - Stated complaint Stated Complaint: SI - Chief complaint Chief Complaint: MHE - History obtained from History obtained from: Patient (The patient took 30 100 mg tablets of trazadone at about 3:00 today. patient indicates he recently broke up with his girlfriend and no longer wanted to live. The patient admits to previous suicide attempts. denies taking any other medications, his roomate found him and called 911 and was brought here involuntary. remainder of the history is unknown as the patient is sedated.) Review of Systems Unable to obtain: Intoxicated PD PAST MEDICAL HISTORY - Present Medications Home Medications: Ambulatory Orders Medication Instructions Recorded Confirmed Aripiprazole [Abilify] 30 mg PO DAILY 04/16/19 04/16/19 Doxepin [SINEquan] 25 mg PO QPM 04/16/19 04/16/19 Fluoxetine HCl 60 mg PO DAILY 04/16/19 04/16/19 Trazodone HCl 300 mg PO QPM 04/16/19 04/16/19 Cephalexin [Keflex] 500 mg PO BID #10 capsule 04/20/19 Saccharomyces Boulardii [Florastor] 250 mg PO BID #60 capsule 04/20/19 Sulfamethox/Trimeth 800/160 1 each PO BID #10 tablet 04/20/19 [Bactrim Ds] oxyCODONE [Roxicodone] 5 mg PO Q4HR PRN #21 tablet 04/20/19 - Allergies Allergies/Adverse Reactions: Allergies Allergy/AdvReac Type Severity Reaction Status Date / Time No Known Drug Allergies Allergy Verified 04/15/19 14:16 PD ED PE NORMAL - Vitals Vital signs reviewed: Yes - General General: No acute distress, Well developed/nourished, Other (awake, not alert, oriented to name but not place and time) - HEENT HEENT: Atraumatic, PERRL, EOMI, Moist mucous membranes, Other (currently protecting his airway.) - Neck Neck: Supple, no meningeal sign - Cardiac Cardiac: RRR, No murmur, Strong equal pulses - Respiratory Respiratory: No respiratory distress, Clear bilaterally - Abdomen Abdomen: Normal bowel sounds, Soft, Non tender, Non distended, No organomegaly - Derm Derm: Normal color, Warm and dry, No rash - Extremities Extremities: No deformity, No tenderness to palpate, No edema - Neuro Neuro: b and b gang worker 2-12 intact, No motor deficit, No sensory deficit, Other (somnelent, no facial droop, reflexes are 2+ and symettric in b/l upper and lower extremities) Verbal: Confused - Psych Psych: Normal mood, Normal affect Results - Vitals Vitals: Vital Signs - 24 hr 11/09/19 04:49 Temperature 36.1 C L Heart Rate 83 Respiratory 20 Rate Blood Pressure 124/80 O2 Saturation 98 Oxygen O2 Source Room air - EKG (time done) 04:58 Rhythm: NSR Burson: Normal Intervals: Prolonged QT QRS: Normal - Labs Labs: Laboratory Tests 11/09/19 11/09/19 11/09/19 05:11 05:11 05:11 WBC 5.6 RBC 5.10 Hgb 14.6 Hct 44.2 MCV 86.7 MCH 28.6 MCHC 33.0 RDW 12.4 Plt Count 295 MPV 8.8 Neut # (Auto) 3.2 Lymph # (Auto) 1.6 [place] # (Auto) 0.6 Eos # (Auto) 0.1 Baso # (Auto) 0.0 Absolute Nucleated RBC 0.00 Nucleated RBC % 0.0 PT INR APTT Sodium 139 Potassium 3.0 L Chloride 98 L Carbon Dioxide 27 Anion Gap 14.0 H BUN 15 Creatinine 1.1 Estimated GFR (MDRD) 71 L Glucose 143 H Calcium 8.7 Magnesium 2.1 Total Creatine Kinase 72 TSH 1.16 Salicylates < 6.0 Acetaminophen < 10 L Ethyl Alcohol < 5.0 11/09/19 05:11 WBC RBC Hgb Hct MCV MCH MCHC RDW Plt Count MPV Neut # (Auto) Lymph # (Auto) [place] # (Auto) Eos # (Auto) Baso # (Auto) Absolute Nucleated RBC Nucleated RBC % PT 13.1 H INR 1.2 APTT 22.8 L Sodium Potassium Chloride Carbon Dioxide Anion Gap BUN Creatinine Estimated GFR (MDRD) Glucose Calcium Magnesium Total Creatine Kinase TSH Salicylates Acetaminophen Ethyl Alcohol PD MEDICAL DECISION MAKING - ED course Complexity details: d/w patient, other (case discussed with hospitalist. will admit for observation for prolonged QT. ) Departure - Departure Disposition: 66 [facility] DC/Xfer Clinical Impression: Prolonged QT interval Overdose Qualifiers: Encounter type: initial encounter Injury intent: undetermined intent Qualified Code(s): T50.904A - Poisoning by unspecified drugs, medicaments and biological substances, undetermined, initial encounter Condition: Fair
[2019-11-09] MEDS ORDERED: MAGNESIUM SULFATE 2 GRAM 2 GM/50 ML BAG IV ONE (05:01)
[2019-11-09 05:22] LABS: BASOPHILS % (AUTO) 0.4 %; EOSINOPHILS # (AUTO) 0.1 10^3/uL (0.0-0.7); EOSINOPHILS % (AUTO) 1.6 %; HGB - HEMOGLOBIN 14.6 g/dL (14.0-18.0); LYMPHOCYTES # (AUTO) 1.6 10^3/uL (1.5-3.5); LYMPHOCYTES % (AUTO) 28.9 %; MEAN CORPUSCULAR HEMOGLOBIN 28.6 pg (27.0-31.0); MEAN CORPUSCULAR VOLUME 86.7 fL (80.0-94.0); MEAN PLATELET VOLUME 8.8 fL (7.4-11.4); MONOCYTES # (AUTO) 0.6 10^3/uL (0.0-1.0); MONOCYTES % (AUTO) 11.5 %; NEUTROPHILS # (AUTO) 3.2 10^3/uL (1.5-6.6); NEUTROPHILS % (AUTO) 57.1 %; PLT - PLATELET COUNT 295 10^3/uL (130-450); RED CELL DISTRIBUTION WIDTH 12.4 % (12.0-15.0); WHITE BLOOD COUNT 5.6 x10^3/uL (4.8-10.8)
[2019-11-09 05:32] LABS: INR 1.2 (0.8-1.2); PT - PROTHROMBIN TIME 13.1 secs (9.9-12.6)
[2019-11-09 05:39] LABS: ACETAMINOPHEN < 10 ug/mL (10-30); BUN - BLOOD UREA NITROGEN 15 mg/dL (6-20); CALCIUM 8.7 mg/dL (8.5-10.3); CARBON DIOXIDE - CO2 27 mmol/L (21-32); CHLORIDE 98 mmol/L (101-111); CK- CREATINE KINASE 72 IU/L (22-269); CREATININE 1.1 mg/dL (0.6-1.2); GFR - MDRD 71 (>89); GLUCOSE 143 mg/dL (70-100); MAGNESIUM 2.1 mg/dL (1.7-2.8); PARTIAL THROMBOPLASTIN TIME 22.8 secs (24.9-33.3); SALICYLATE < 6.0 mg/dL; SODIUM 139 mmol/L (135-145)
--- NOTE | 2019-11-09 05:39 | XRAY Report ---
Reason: OD Procedure Date: 11/09/2019 Accession Number: [id number] / [id number] Procedure: XR - Chest 1 View X-Ray CPT Code: 07641 Final Report FULL RESULT: EXAM: CHEST RADIOGRAPHY EXAM DATE: 11/09/2019 05:20 AM. CLINICAL HISTORY: OD. COMPARISON: None. TECHNIQUE: 1 view. FINDINGS: Lungs/Pleura: No focal opacities evident. No pleural effusion. No pneumothorax. Mediastinum: Within exam limitations, the cardiomediastinal contour is normal. Other: None. IMPRESSION: No acute cardiopulmonary process. RADIA
[2019-11-09] MEDS ORDERED: SODIUM CHLORIDE FLUSH 0.9% 10 ML SYRINGE IVP PRN (06:04)
[2019-11-09] MEDS: SODIUM CHLORIDE FLUSH 0.9% 10 ML SYRINGE IVP SCH ×2 (08:09→21:38)
[2019-11-09] MEDS: SODIUM CHLORIDE 0.9% 1,000 ML IV SCH ×2 (08:10→16:53)
[2019-11-09 08:35] LABS: BASOPHILS % (AUTO) 0.2 %; EOSINOPHILS % (AUTO) 0.2 %; LYMPHOCYTES % (AUTO) 10.2 %; MEAN CORPUSCULAR HEMOGLOBIN 29.4 pg (27.0-31.0); MEAN CORPUSCULAR HGB CONC 33.9 g/dL (32.0-36.0); MEAN CORPUSCULAR VOLUME 86.7 fL (80.0-94.0); MEAN PLATELET VOLUME 9.1 fL (7.4-11.4); MONOCYTES # (AUTO) 0.4 10^3/uL (0.0-1.0); MONOCYTES % (AUTO) 4.3 %; NEUTROPHILS # (AUTO) 8.2 10^3/uL (1.5-6.6); NEUTROPHILS % (AUTO) 84.6 %; PLT - PLATELET COUNT 294 10^3/uL (130-450); RED CELL DISTRIBUTION WIDTH 12.4 % (12.0-15.0); WHITE BLOOD COUNT 9.7 x10^3/uL (4.8-10.8)
--- NOTE | 2019-11-09 09:05 | HISTORY & PHYSICAL EXAMINATION ---
Chief Complaint - Chief Complaint Chief Complaint: Intentional overdose with 30 tabs of 300mg trazadone <Beth Tijerina - Last Filed: 11/09/19 11:24> History of Present Illness - Admitted From Admitted From:: Emergency room - History Obtained From Records Reviewed: yes History obtained from: Patient, medical chart Exam Limitations: Patient lethargic and not wanting to talk <Beth Tijerina - Last Filed: 11/09/19 11:24> - History Obtained From History obtained from: Patient, medical chart and Centricity <Melanie Cook - Last Filed: 11/09/19 17:37> - History of Present Illness HPI Comment/Other: Mr. Dsouza is 48 yo gentleman with a PMH of bipolar affective disease, post- traumatic stress disorder, heroine, methamphetamine, cannabis abuse and tobacco dependence who was brought into the emergency after overdose with trazadone. He was brought in to the ER after patient's roommate found him at home. Patient was able to tell us that he took 30 tabs of 300mg trazadone around 3 pm 11/08/2019 after his girlfriend broke up with him. He told his nurse today, 11/09/2019, that he had did heroin before he took the trazadone. Per patient's medical chart this is not his first suicide attempt. Patient states that he sees a mental health provider. (Beth Tijerina) Patient is seen with nurse practitioner student as well as separately. He is followed in 1 of our outpatient clinics and was last seen August 27, 2019 by Nury Whitfield PA-C. It was noted that he had elevated blood pressure in the office, and was there to get refills for his depression anxiety. He does have occasional thoughts across his mind that he would be better off but is made a solid commitment and decision not to harbor those and never try to kill himself and did not have any suicidal plans at that time. He had been off of IV drugs for 2 months, and he was about to start treatment for hepatitis C now that he not been with IV drugs and was on the methadone program in [place]. Apparently his girlfriend broke broke up with him. And he took 30 tablets of 300 mg trazodone around 3 PM on November 08. He also told the nurse today that he did a shot of heroin. He had been found by his roommate when his roommate had come home. Ambulance was called and he was brought to the emergency room. In the emergency room he was afebrile with a blood pressure of 124/80. Normal oxygenation. He was disoriented, awake, and other than the somnolence had no other real findings on physical exam. CBC was normal. Electrolytes were normal other than a low potassium of 3.0. Salicylates, acetaminophen, ethyl alcohol were not present. Urine tox was positive for methadone, amphetamines, and cannabinoids. Telemetry shows sinus rhythm. No ventricular tachycardia. He does have a prolonged QT syndrome. However this gentleman is on Abilify, Sinequan, fluoxetine, lithium, and methadone with his trazodone. All of these can combine to give you prolonged QT syndrome. (Melanie Cook) History - Past Medical History Cardiovascular: reports: None Respiratory: reports: None Neuro: reports: None Endocrine/Autoimmune: reports: None GI: reports: None : reports: None Psych: reports: Depression, Anxiety, Other Musculoskeletal: reports: None Derm: reports: None MRSA Hx?: No - Family & Social History Family History Comment/Other: pt report he is living at [place] and single without family and child. Social History Notes: pt denies alcohol abuse and cigarette smoker. He report he still use Heroin - Substance History Abuse: Recurrent use of substance despite neg consequences: Cannabis, Opioid Dependence: Experiences withdrawal or developed tolerances: Tobacco Tobacco Details: Other (Vapes) - POLST Patient has POLST: No <Beth Tijerina - Last Filed: 11/09/19 11:24> - Past Medical History Cardiovascular: reports: Hypertension GI: reports: Hepatitis (Hepatitis C diagnosed approximately 2014. Once he became clean for 2 months by July 2019 was being seen for therapy for hep C.), Cirrhosis (Stage III fibrosis at the time of diagnosis of hep C. No ascites.) Psych: reports: Post traumatic stress disorder Musculoskeletal: reports: Other (Wrist abscess associated with a steroid injection April 2019 requiring IV antibiotics followed by oral antibiotics for 21 days.) Other Past Medical History: Low-grade anemia with hemoglobin 13.4 and hematocrit 39.7, platelets 308 in December 2018 - Family & Social History Family History Comment/Other: Dad had non-Hodgkin's lymphoma. Sister has a history of depression. No children Living arrangement: At home Living Situation: With friend(s) Social History [place]: [place] lived here [place] and then moved back here in February 2019 after living in [place] for 7 years. He was using heroin, methamphetamines and vaping low-dose nicotine when he came here in February 2019. He stopped the heroin June 2019 until the day of admission today.He started smoking in 2000 and smoked half a pack per day until 2014. - POLST Patient has POLST: No POLST Status: Full Code <Melanie Cook - Last Filed: 11/09/19 17:37> Meds/Allgy <Beth Tijerina - Last Filed: 11/09/19 11:24> <Melanie Cook - Last Filed: 11/09/19 17:37> - Home Medications Home Medications: Ambulatory Orders Medication Instructions Recorded Confirmed Doxepin [SINEquan] 25 mg PO QPM 04/16/19 11/09/19 Fluoxetine HCl 40 mg PO DAILY 04/16/19 11/09/19 Trazodone HCl 300 mg PO QPM 04/16/19 11/09/19 Aripiprazole [Abilify] 20 mg PO DAILY 11/09/19 11/09/19 Bratenahl Carbonate [Bratenahl 900 mg PO QPM 11/09/19 11/09/19 Carbonate ER] Methadone 100 mg PO DAILY 11/09/19 11/09/19 Sildenafil Citrate [Viagra] 50 - 100 mg PO DAILY PRN 11/09/19 11/09/19 - Allergies Allergies/Adverse Reactions: Allergies Allergy/AdvReac Type Severity Reaction Status Date / Time No Known Drug Allergies Allergy Verified 04/15/19 14:16 Review of Systems - Gastrointestinal Gastrointestinal: reports: Nausea, Vomiting - Psychiatric Psychiatric: reports: Depression, Anxiety, Suicidal, Other (Bipolar) <Beth Tijerina - Last Filed: 11/09/19 11:24> - Constitutional Constitutional: reports: Fatigue, Malaise, Other (Patient is seen several hours after being seen by nurse practitioner student. He is more alert and more conversational with me.) - Eyes Eyes: denies: Pain, Irritation, Amaurosis, Vision loss - Ears, Nose & Throat Ears, Nose & Throat: denies: Ear pain, Hearing loss, Hearing aids, Tinnitus, Vertigo, Sore throat, Hoarseness - Cardiovascular Cariovascular: reports: Palpitations, Lightheadedness. denies: Irregular heart rate, Chest pain, Edema, Syncope, Exertional dyspnea, Decr. exercise tolerance - Respiratory Respiratory: denies: Cough, Sputum production, Wheezing, Apnea - Gastrointestinal Gastrointestinal: reports: Poor appetite. denies: Abdominal pain, Abdominal distention - Genitourinary Genitourinary: denies: Dysuria, Frequency, Urgency, Hematuria - Musculoskeletal Musculoskeletal: reports: Muscle pain, Muscle aches - Integumentary Integumentary: denies: Rash, Pruritis, Lesions, Dryness - Neurological Neurological: reports: General weakness, Headache - Endocrine Endocrine: denies: Polyuria, Polydypsia - Hematologic/Lymphatic Hematologic/Lymphatic: reports: Anemia <Melanie Cook - Last Filed: 11/09/19 17:37> <Beth Tijerina - Last Filed: 11/09/19 11:24> <Melanie Cook - Last Filed: 11/09/19 17:37> Prior Level of Functionality: Patient was indepedent with activities of daily living. (Beth Tijerina) Since he is not allowed to drive a car, he rides his bicycle everywhere. (Melanie Cook) Exam - Vital Signs Reviewed Vital Signs: Yes - Physical Exam General Appearance: positive: No acute distress Eyes Bilateral: positive: Normal inspection ENT: positive: ENT inspection nml Neck: positive: Nml inspection, Trachea midline Respiratory: positive: Chest non-tender, No respiratory distress, Breath sounds nml Cardiovascular: positive: Regular rate & rhythm, No murmur, No gallop. negative: Systolic murmur, Diastolic murmur Peripheral Pulses: positive: 2+ Abdomen: positive: Non-tender, No organomegaly, Nml bowel sounds. negative: Tenderness, Mass Back: positive: Nml inspection Skin: positive: Color nml. negative: No rash, Warm Extremities: positive: Nml appearance, No pedal edema Neurologic/Psychiatric: positive: Oriented x3, Depressed mood/affect <Beth Tijerina - Last Filed: 11/09/19 11:24> <Melanie Cook - Last Filed: 11/09/19 17:37> - Vital Signs Vital Signs: Vital Signs x48h Temp Pulse Pulse Resp BP BP Pulse Ox 11/09/19 07:49 36.6 C 82 22 146/85 H 96 11/09/19 07:29 76 12 121/71 98 11/09/19 06:10 69 16 109/72 100 11/09/19 05:30 74 16 113/77 99 11/09/19 04:49 36.1 C L 83 20 124/80 98 - Physical Exam Comments/Other: On physical examination he is asleep but arouses to light touch and voice. When he first came to the floor he was much more sedated. He is appropriate with answers, oriented to person and place. Neck is supple with shotty adenopathy. Lungs are clear to auscultation and percussion. PMI is normally placed with a regular rate and rhythm. The abdomen is soft, nontender, no ascites or fluid wave palpable. Extremities are warm without any edema. Neurologically no focal deficits, no tremors. (Melanie Cook) Conclusion/Plan - Problem List (1) Overdose Conclusion/Plan: Patient reports taking 30 tabs of 300mg trazadone after his girlfriend broke up with him at 3 pm 11/08/2019. This is not patient's first attempted suicide. Could not ellicit more information from patient who is quite somnulent. Patient urine toxicology screen negative for salicylates, acetaminophen and ethyl alcohol. Patient reports doing heroin prior to taking the trazadone, but he doesn't know how much. Patient lethargic and oriented to 3. PERRL 2 bilaterally. Patient following commands. Poison control called in ER and per a note from Moises Stevens: ": called poison control, spoke w/ [facility]. Overdose of trazadone can cause hypotension, bradycardia, drowsiness, respiratory distress, and prolonged QTc. states the observation time should be 8 hours." 2. NS at 125ml/hr 3. Oxygen to keep sats >92% 4. Emesis x1. Will add an anti-emetic. Qualifiers: Encounter type: initial encounter Injury intent: undetermined intent Qualified Code(s): T50.904A - Poisoning by unspecified drugs, medicaments and biological substances, undetermined, initial encounter (2) Prolonged QT interval Conclusion/Plan: Mr. Dsouza ingested 30 300mg tabs of trazadone at 3pm 11/09/2019. EKG at 0449 s howed normal sinus rhythm with QTC 545 in the ER. Patient's magnesium level 2.1. Patient given 2.0 grams IV. Potassium level 3.0. Will replace with IV potassium. Poison control suggested that trazadone overdose will prolong QTC and should be monitored for 8 hours. 1. Patient on telemetry 2. Will re-check patient electrolytes in afternoon. 3. Repeat EKG if arrhythmia noted. (3) IV drug user Conclusion/Plan: Patient told nurse that he did heroin before he took the 30 tabs of heroin. 1. Will monitor for withdrawal symptoms. - Lab Results Lab results reviewed: Yes Fish Bones: 11/09/19 08:25 11/09/19 05:11 - Diagnostic Imaging Results Diagnostic Imaging Results: positive: Final report reviewed - EKG Results EKG Interpreted Independently: Yes EKG Comparison: No prior EKG <BreezyBeth - Last Filed: 11/09/19 11:24> - Problem List (1) Overdose Conclusion/Plan: Delivered overdose attempt on his part. This gentleman also takes Abilify, Sinequan, fluoxetine, lithium, Viagra and methadone. He is not felt to overdose in any of these substances other than the trazodone. Plan: Medical supportive care Observation stay [facility] P examination once he is more awake. Poison control recommends at least an 8-hour observational stay Qualifiers: Encounter type: initial encounter Injury intent: undetermined intent Qualified Code(s): T50.904A - Poisoning by unspecified drugs, medicaments and biological substances, undetermined, initial encounter (2) Prolonged QT interval Conclusion/Plan: This is due to multiple medications. While we are stopping the trazodone and not resuming it, I do not expect his QT syndrome to return to normal since he is on methadone with other medications or prolonged QT. Plan: Repeat EKG in the next few hours Monitor on telemetry (3) Suicidal ideation Conclusion/Plan: I anticipate medical stability in the next 8 to 10 hours. Will ask for social work and then [facility] evaluation. (4) Illicit drug use Conclusion/Plan: Unfortunately he has returned to heroin use. Continued methamphetamine abuse. He understands ramifications. Again promises to not use again. I do not know if this will affect his ability to continue hepatitis C treatment. (5) Hepatitis C Conclusion/Plan: His office notes do not indicate that he is on Harvoni or any other type of treatment. We will ask him what follow-up he is getting. Qualifiers: Viral hepatitis chronicity: chronic Hepatic coma status: without hepatic coma Qualified Code(s): B18.2 - Chronic viral hepatitis C (6) Hypokalemia Conclusion/Plan: supplement and recheck in a few hours. Once K and sedation treated, can be evaluated by [facility]. - Lab Results Lab results reviewed: Yes Fish Bones: 11/09/19 08:25 11/09/19 16:33 - Diagnostic Imaging Results Diagnostic Imaging Results: positive: Final report reviewed - EKG Results EKG Interpreted Independently: No <Melanie Cook - Last Filed: 11/09/19 17:37> - Diagnostic Imaging Results Diagnostic Imaging Results Comments: Chest [id number] (Beth Tijerina) - EKG Results EKG Findings: NST with QT 545. (Melanie Cook) Core Measures - Anticipated LOS I expect patient to be DC'd or transferred within 96 hours.: Yes - DVT/VTE - Prophylaxis VTE/DVT Device ordered at admit?: Yes <Beth Tijerina - Last Filed: 11/09/19 11:24> - Anticipated LOS I expect patient to be DC'd or transferred within 96 hours.: Yes - DVT/VTE - Prophylaxis VTE/DVT Device ordered at admit?: Yes <Melanie Cook - Last Filed: 11/09/19 17:37>
[2019-11-09] MEDS ORDERED: ONDANSETRON 4 MG/2 ML VIAL IVP PRN (09:58)
[2019-11-09] MEDS: NICOTINE 14 MG PATCH TOP SCH (10:12)
[2019-11-09] MEDS: POTASSIUM CHLOR 10 MEQ/100 ML 10 MEQ/100 ML BAG IV SCH ×5 (10:13→14:14)
[2019-11-09 13:03] LABS: MUDS CUTOFF CONCENTRATIONS CUTOFF CONC BELOW:
[2019-11-09 13:16] LABS: AMPHETAMINE SCREEN,URINE POSITIVE (NEGATIVE); BENZODIAZEPINES SCREEN, URINE NEGATIVE (NEGATIVE); COCAINE SCREEN URINE NEGATIVE (NEGATIVE); METHADONE SCREEN, URINE POSITIVE (NEGATIVE); METHAMPHETAMINES SCREEN, URINE NEGATIVE (NEGATIVE); OPIATE SCREEN, URINE NEGATIVE (NEGATIVE); OXYCODONE SCREEN, URINE NEGATIVE (NEGATIVE); PROPOXYPHENE SCREEN, URINE NEGATIVE (NEGATIVE); TRICYCLIC ANTIDEPRESSANT,URINE NEGATIVE (NEGATIVE)
[2019-11-09] MEDS ORDERED: METHADONE 5 MG TABLET PO SCH (14:00)
[2019-11-09] MEDS: polyethylene glycoL 3350 17 GM PACKET PO SCH (14:14)
--- NOTE | 2019-11-09 14:20 | PHARMACY PROGRESS NOTE ---
- Best Possible Medication History Admit Date and Time: 11/09/19 1005 Processed by: Pharmacy Medication History completed: Yes Patient Interview: Completed Secondary Source(s): Physician records, Pharmacy records, Insurance records As the person ultimately responsible for medication therapy, providers are able to order a medication from an existing home medication list in [facility] via the "Reconcile Routine" prior to Confirmation of that medication by software support engineer. Such practice is discouraged except when the physician, in their clinical judgment, deems that a medical need exists for a medication without regard to previous use.
[2019-11-09 16:47] LABS: CALCIUM 8.6 mg/dL (8.5-10.3); CREATININE 1.2 mg/dL (0.6-1.2)
[2019-11-09] MEDS: METHADONE 5 MG TABLET PO SCH (17:13)
[2019-11-10] MEDS: SODIUM CHLORIDE 0.9% 1,000 ML IV SCH ×3 (00:38→15:45)
[2019-11-10] MEDS: SODIUM CHLORIDE FLUSH 0.9% 10 ML SYRINGE IVP SCH ×3 (00:39→15:45)
[2019-11-10 05:24] LABS: CALCIUM 8.4 mg/dL (8.5-10.3); CREATININE 1.1 mg/dL (0.6-1.2)
[2019-11-10] MEDS ORDERED: POTASSIUM CHLORIDE 20 MEQ TABLET PO SCH (07:03)
[2019-11-10] MEDS: METHADONE 5 MG TABLET PO SCH (08:39)
[2019-11-10] MEDS: NICOTINE 14 MG PATCH TOP SCH (08:43)
[2019-11-10] MEDS: polyethylene glycoL 3350 17 GM PACKET PO SCH (12:14)
--- NOTE | 2019-11-10 19:03 | PROVIDER PROGRESS NOTE ---
Subjective - Prog Note Date Prog Note Date: 11/10/19 Prog Note Time: 19:03 - Subjective Pt reports feeling: Improved Subjective: He is still sad. Having suicidal thoughts because of his break-up with his girlfriend. But he denies any pain. Shortness of breath. Overnight telemetry has had no arrhythmia. Current Medications - Current Medications Current Medications: Active Medications Sodium Chloride (Normal Saline 0.9%) 1,000 mls @ 125 mls/hr IV .Q8H [facility] Last Admin: 11/10/19 15:45 Dose: 125 mls/hr Methadone HCl () 100 mg PO DAILY [facility] Last Admin: 11/10/19 08:39 Dose: 100 mg Nicotine (Nicoderm) 1 patch TOP DAILY [facility] Last Admin: 11/10/19 08:43 Dose: 1 patch Ondansetron HCl (Zofran Inj) 4 mg IVP Q4HR PRN PRN Reason: Nausea / Vomiting Last Admin: 11/09/19 14:15 Dose: 4 mg Polyethylene Glycol (Miralax) 17 gm PO DAILY [facility] Last Admin: 11/10/19 12:14 Dose: Not Given Sodium Chloride (Normal Saline Flush 0.9%) 10 ml IVP PRN PRN PRN Reason: NEEDED PER PROVIDER ORDERS Sodium Chloride (Normal Saline Flush 0.9%) 10 ml IVP 0100,0900,1700 [facility] Last Admin: 11/10/19 15:45 Dose: 10 ml Doxepin [SINEquan] 25 mg PO QPM 04/16/19 Fluoxetine HCl 40 mg PO DAILY 04/16/19 Trazodone HCl 300 mg PO QPM 04/16/19 Aripiprazole [Abilify] 20 mg PO DAILY 11/09/19 [facility] Carbon[facility] [[facility]] 900 mg PO QPM 11/09/19 Methadone 100 mg PO DAILY 11/09/19 Sildenafil Citrate [Viagra] 50 - 100 mg PO DAILY PRN 11/09/19 Objective - Vital Signs/Intake & Output Reviewed Vital Signs: Yes Vital Signs: Vital Signs x48h Temp Pulse Resp BP BP Pulse Ox 11/10/19 15:36 36.6 C 75 18 125/73 96 11/10/19 11:40 36.4 C L 75 18 135/78 H 97 Intake & Output: Intake & Output 11/07/19 11/08/19 11/09/19 11/10/19 23:59 23:59 23:59 23:59 Intake Total 3770.833 7329.167 Output Total 1000 Balance 2770.833 7329.167 - Objective General Appearance: positive: No acute distress, Alert Eyes Bilateral: positive: PERRL, EOMI ENT: positive: Pharynx nml Neck: positive: No JVD. negative: Stiff neck Respiratory: positive: Chest non-tender. negative: Wheezes, Rales, Rhonchi Cardiovascular: positive: Regular rate & rhythm. negative: Gallop/S4, Friction rub Abdomen: positive: Non-tender, No organomegaly, Nml bowel sounds, No distention Skin: positive: Warm, Dry Extremities: positive: Non-tender, No pedal edema Neurologic/Psychiatric: positive: Oriented x3, CN's nml (2-12), Motor nml - Lab Results Fish Bones: 11/09/19 08:25 11/10/19 04:15 Other Labs: Lab Results x24hrs 11/10/19 Range/Units 04:15 Sodium 143 (135-145) mmol/L Potassium 3.5 (3.5-5.0) mmol/L Chloride 108 (101-111) mmol/L Carbon Dioxide 27 (21-32) mmol/L Anion Gap 8.0 (6-13) BUN 8 (6-20) mg/dL Creatinine 1.1 (0.6-1.2) mg/dL Estimated GFR (MDRD) 71 L (>89) Glucose 118 H (70-100) mg/dL Calcium 8.4 L (8.5-10.3) mg/dL ABX Reporting Has patient been on IV antibiotics over the past 48 hours?: No Assessment/Plan - Problem List (1) Overdose Impression: Conclusion/Plan: Delivered overdose attempt on his part. This gentleman also takes Abilify, Sinequan, fluoxetine, lithium, Viagra and methadone. He is not felt to overdose in any of these substances other than the trazodone. After 48 hours of telemetry monitoring, and EKGs, his QT continues to be p rolonged. But he has had no arrhythmias. From a medical perspective he is beyond the toxicity of trazodone. He is medically stable. At this time I do not think there is anything we can do about the prolonged QT. We have not resumed any of his medications except methadone which he requires for chronic pain management.He is ambulating in his room. Eating his meals. He has been evaluated by mental health. He is a voluntary transfer to inpatient psych facility. He will go this evening. Qualifiers: Encounter type: initial encounter Injury intent: undetermined intent Qualified Code(s): T50.904A - Poisoning by unspecified drugs, medicaments and biological substances, undetermined, initial encounter (2) Prolonged QT interval Conclusion/Plan: This is due to multiple medications. While we are stopping the trazodone and not resuming it, I do not expect his QT syndrome to return to normal since he is on methadone with other medications or prolonged QT. Plan: After being monitored on telemetry there is no arrhythmias. EKG showed continued QT prolongation. No specific treatment for this other than time. He is felt to be medically stable. (3) Suicidal ideation Conclusion/Plan: Continues. He is felt to be high risk by mental health professional. Transfer to inpatient psych. (4) Illicit drug use Conclusion/Plan: Unfortunately he has returned to heroin use. Continued methamphetamine abuse. He understands ramifications. Again promises to not use again. I do not know if this will affect his ability to continue hepatitis C treatment. (5) Hepatitis C Conclusion/Plan: His office notes do not indicate that he is on Harvoni or any other type of treatment. We will ask him what follow-up he is getting. Qualifiers: Viral hepatitis chronicity: chronic Hepatic coma status: without hepatic coma Qualified Code(s): B18.2 - Chronic viral hepatitis C (6) Hypokalemia Resolved Conclusion/Plan: Qualifiers: Qualified Code(s): T50.904A - Poisoning by unspecified drugs, medicaments and biological substances, undetermined, initial encounter
--- NOTE | 2019-11-10 20:24 | DISCHARGE SUMMARY ---
"Discharge Summary Admit Date: 11/09/19 Discharge Date: 11/10/19 Discharging Provider: Fox Pickett Primary Care Provider: Lashonda Angeles Code Status: Attempt Resuscitation Condition at Discharge: Stable Discharge Disposition: Transfer Acute Care Hosp Discharge Facility Name: [facility] - DIAGNOSES Admission Diagnoses: Overdose Prolonged QT interval Suicidal ideation Illicit drug use Hepatitis C Hypokalemia Discharge Diagnoses with Status of Each Condition: Overdose - Resolved. He overdosed on 30 tablets of 300 mg of trazodone after his girlfriend had broken up with him. He was observed for over 24 hours. Prolonged QT interval - Stable. His QTC remains prolonged and this is likely due to the multiple medications he has been taking at home including methadone. His QTC remains prolonged but he has been monitored on telemetry for 36 hours without arrhythmias. It is felt that he is medically stable and there is no acute management for his prolonged QT. We have held all of his home medication except for the methadone. Suicidal ideation - Continues to have suicidal ideations and is felt to be high risk by the mental health professional. He will be transferred to [facility] for further management. Illicit drug use - Toxicology was positive for methamphetamines. Hepatitis C - He is currently not receiving treatment. He can continue to follow-up on an outpatient basis discuss treatment options if he no longer uses illicit drugs. - HPI History of Present Illness: H&P per Dr. Cook: Mr. Dsouza is 48 yo gentleman with a PMH of bipolar affective disease, post- traumatic stress disorder, heroine, methamphetamine, cannabis abuse and tobacco dependence who was brought into the emergency after overdose with trazadone. He was brought in to the ER after patient's roommate found him at home. Patient was able to tell us that he took 30 tabs of 300mg trazadone around 3 pm 11/08/2019 after his girlfriend broke up with him. He told his nurse today, 11/09/2019, that he had did heroin before he took the trazadone. Per patient's medical chart this is not his first suicide attempt. Patient states that he sees a mental health provider. Patient is seen with nurse practitioner student as well as separately. He is followed in 1 of our outpatient clinics and was last seen August 27, 2019 by Nury Whitfield PA-C. It was noted that he had elevated blood pressure in the office, and was there to get refills for his depression anxiety. He does have occasional thoughts across his mind that he would be better off but is made a solid commitment and decision not to harbor those and never try to kill himself and did not have any suicidal plans at that time. He had been off of IV drugs for 2 months, and he was about to start treatment for hepatitis C now that he not been with IV drugs and was on the methadone program in [place]. Apparently his girlfriend broke broke up with him. And he took 30 tablets of 300 mg trazodone around 3 PM on November 08. He also told the nurse today that he did a shot of heroin. He had been found by his roommate when his roommate had come home. Ambulance was called and he was brought to the emergency room. In the emergency room he was afebrile with a blood pressure of 124/80. Normal oxygenation. He was disoriented, awake, and other than the somnolence had no other real findings on physical exam. CBC was normal. Electrolytes were normal other than a low potassium of 3.0. Salicylates, acetaminophen, ethyl alcohol were not present. Urine tox was positive for methadone, amphetamines, and cannabinoids. Telemetry shows sinus rhythm. No ventricular tachycardia. He does have a prolonged QT syndrome. However this gentleman is on Abilify, Sinequan, fluoxetine, lithium, and methadone with his trazodone. All of these can combine to give you prolonged QT syndrome. - CONSULTS | PROCEDURES Consultations: Social Work - HOSPITAL COURSE Hospital Course: Was admitted under observation after he had a intentional overdose. He took 30 tablets of 300 mg of trazodone after his girlfriend had broken up with him. He was monitored for 24 hours after poison control recommended at least 8 hours of observation. His QTC has remained prolonged although this is felt to be secondary to the multiple medications he is on at home. These have all been held except for his methadone to prevent withdrawal. The dose of this could potentially be decreased on an outpatient basis. He was monitored on telemetry for over 36 hours without evidence of arrhythmia. It is felt he is medically stable to be transferred to [facility] for further management of his suicidal ideations. - ALLERGIES Allergies/Adverse Reactions: Allergies Allergy/AdvReac Type Severity Reaction Status Date / Time No Known Drug Allergies Allergy Verified 04/15/19 14:16 - MEDICATIONS Home Medications: Ambulatory Orders Medication Instructions Recorded Confirmed Doxepin [SINEquan] 25 mg PO QPM 04/16/19 11/09/19 Fluoxetine HCl 40 mg PO DAILY 04/16/19 11/09/19 Trazodone HCl 300 mg PO QPM 04/16/19 11/09/19 Aripiprazole [Abilify] 20 mg PO DAILY 11/09/19 11/09/19 [facility] Carbonate [[facility] 900 mg PO QPM 11/09/19 11/09/19 Carbonate ER] Methadone 100 mg PO DAILY 11/09/19 11/09/19 Sildenafil Citrate [Viagra] 50 - 100 mg PO DAILY PRN 11/09/19 11/09/19 - PHYSICAL EXAM AT DISCHARGE General Appearance: positive: No acute distress, Alert, Mild distress Eyes Bilateral: positive: Conjunctivae nml ENT: positive: ENT inspection nml Neck: positive: Nml inspection Respiratory: positive: No respiratory distress, Breath sounds nml Cardiovascular: positive: Regular rate & rhythm, No murmur. negative: Tachycardia, Bradycardia Abdomen: positive: Non-tender, No distention. negative: Tenderness Skin: positive: Color nml, Warm, Dry Extremities: positive: Full ROM Neurologic/Psychiatric: positive: Oriented x3, Motor nml. negative: Disoriented to person, Disoriented to place, Disoriented to time - LABS Result Diagrams: 11/09/19 08:25 11/10/19 04:15 - DIAGNOSTIC IMAGING Diagnostic Imaging Results: Final report reviewed - TIME SPENT Time Spent in Discharge (Minutes): 30"
[2019-11-10 21:52] VITALS: BP 120/65
== END 2019-11-10 23:20 ==
LOC: EDUNIT# → ED 04:42 → UNDOADMOB 06:04 → MS3 06:04 → INTOOBSV 06:04 → MS3 10:05
PROVIDERS: ADMIT Internal Medicine; ATTEND Internal Medicine
DX: T43.212A Poisoning by selective serotonin and norepinephrine reuptake inhibitors, intentional self-harm, initial encounter (principal); R94.31 Abnormal electrocardiogram [ECG] [EKG]; B18.2 Chronic viral hepatitis C; K74.60 Unspecified cirrhosis of liver; E87.6 Hypokalemia; F31.9 Bipolar disorder, unspecified; F41.9 Anxiety disorder, unspecified; F43.10 Post-traumatic stress disorder, unspecified; F15.10 Other stimulant abuse, uncomplicated; F11.10 Opioid abuse, uncomplicated; F12.10 Cannabis abuse, uncomplicated; I10 Essential (primary) hypertension; F17.210 Nicotine dependence, cigarettes, uncomplicated
CPT/HCPCS: 36415; 71045; 80048; 80306; 80307; 80320; 80329; 82550; 83735; 84443; 84484; 85025; 85610; 85730; 93005; 96361; 96365; 96366; 96367; 96375; 99285; A9270; G0378

== ENCOUNTER 2020-08-10 17:48 | Emergency (ER) | payer MEDICAID | END 2020-08-10 18:03 | disposition left against medical advice (07) | LOC: ED 17:48 | DX: Z53.21 Procedure and treatment not carried out due to patient leaving prior to being seen by health care provider (principal) ==

== ENCOUNTER 2021-01-17 17:33 | Emergency (ER) | payer MEDICAID ==
[2021-01-17] MEDS ORDERED: HYDROmorphone 1 MG/ML CARPUJECT IVP STA ×3 (18:37→19:42)
--- NOTE | 2021-01-17 18:58 | ED Physician Documentation ---
History of Present Illness - Stated complaint Stated Complaint: MALE - Chief complaint Chief Complaint: Wound - History obtained from History obtained from: Patient - History of Present Illness Timing: Prior to arrival - Additonal information Additional information: 50-year-old male presents to the emergency department for evaluation of a large abscess and infection developing just superior to his scrotum and testicles. This began about 3 days ago. He does report a history of similar abscess in the past. No fevers. Patient denies pertinent past medical history including hypertension or diabetes. However he does admit to injection drug use. He does present to the emergency department with his girlfriend who is seeking treatment for her scalp infection and tinea capitis. Review of Systems Constitutional: denies: Fever, Chills Eyes: reports: Reviewed and negative Ears: reports: Reviewed and negative Nose: reports: Reviewed and negative Throat: reports: Reviewed and negative Cardiac: reports: Reviewed and negative Respiratory: reports: Reviewed and negative GI: reports: Reviewed and negative : reports: Testicular pain Skin: reports: Lesions (left groin) Musculoskeletal: reports: Reviewed and negative PD PAST MEDICAL HISTORY - Past Medical History Cardiovascular: None Respiratory: None Neuro: None Endocrine/Autoimmune: None GI: None : None Psych: Depression, Anxiety, Other Musculoskeletal: None Derm: None - Past Surgical History Past Surgical History: No - Present Medications Home Medications: Ambulatory Orders Medication Instructions Recorded Confirmed HYDROcod/ACETAM 5/325 [[place] 5/325] 1 tab PO BID #4 tablet 01/17/21 Sulfamethox/Trimeth 800/160 1 each PO BID #14 tablet 01/17/21 [Bactrim Ds 800/160] - Allergies Allergies/Adverse Reactions: Allergies Allergy/AdvReac Type Severity Reaction Status Date / Time No Known Drug Allergies Allergy Verified 04/15/19 14:16 - Social History Does the pt smoke?: No Smoking Status: Current every day smoker Does the pt drink ETOH?: Yes Does the pt have substance abuse?: Yes - Immunizations Immunizations are current?: No - POLST Patient has POLST: No POLST Status: Full Code PD ED PE EXPANDED - General General: Alert, In Pain - Cardiac Cardiac: Regular Rate, Radial strong equal, Femoral strong equal. No: Murmur Present - Abdomen Abdomen: Normal Bowel sounds. No: Tender to palpation - Male Male : Skin lesions, Testes descended minoo, Other (Large 3 x 4 cm area of eryth kindra and induration and draining abscess superior to the scrotum and testes on the mons. However there is significant tenderness of the scrotum and testes with mild erythema but no induration.). No: Normal Exam - Derm Derm: Normal color, Warm and dry, Abscess (Left groin) - Extremities Extremities: Normal. No: Deformity, Tenderness - Neuro Neuro: Alert and Oriented X 3. No: Confused, Disoriented - GCS Eye Opening: Spontaneous Motor: Obeys Commands Verbal: Oriented Total: 15 Results - Vitals Vitals: Vital Signs - 24 hr 01/17/21 01/17/21 01/17/21 17:46 18:54 20:41 Temperature 36.7 C 36.5 C Heart Rate 99 88 99 Respiratory 16 18 16 Rate Blood Pressure 138/84 H 157/98 H 159/91 H O2 Saturation 98 98 98 Oxygen O2 Source Room air - Labs Labs: Laboratory Tests 01/17/21 01/17/21 18:58 18:58 WBC 8.2 RBC 4.97 Hgb 13.5 L Hct 40.7 L MCV 81.9 MCH 27.2 MCHC 33.2 RDW 12.9 Plt Count 348 MPV 8.2 Neut # (Auto) 4.9 Lymph # (Auto) 2.3 [place] # (Auto) 0.8 Eos # (Auto) 0.2 Baso # (Auto) 0.0 Absolute Nucleated RBC 0.00 Nucleated RBC % 0.0 Sodium 140 Potassium 3.6 Chloride 103 Carbon Dioxide 29 Anion Gap 8.0 BUN 12 Creatinine 0.9 Estimated GFR (MDRD) 89 Glucose 84 Calcium 9.0 Total Bilirubin 0.7 AST 13 ALT 13 Alkaline Phosphatase 104 Total Protein 7.3 Albumin 4.0 Globulin 3.3 Albumin/Globulin Ratio 1.2 Lipase 22 - Rads (name of study) CT pelvis Radiology: Final report received (No evidence of gas-forming organism. 2.5 cm hyperdense subcutaneous mass left inguinal region with mild overlying cellulitis. Discrete drainable fluid collection is not identified.) Procedures - Abscess I&D (location) left inguinal Preparation: Betadine Incision: Incised with scalpel, Purulent drainage, Packed Other: Pt tolerated well, Dressing applied, Antibiotic prescribed PD MEDICAL DECISION MAKING - ED course Complexity details: reviewed results, re-evaluated patient, d/w patient ED course: 50-year-old male presents to the emergency department with a large abscess developing on his mons superior to the penis and scrotum. However on exam he has significant tenderness on the scrotum and testes raising concern for extending infection. Therefore screening labs were obtained do not show any significant leukocytosis. We did do a CT of the pelvis to rule out extension of infection or Vito's gangrene Which showed no extension of infection beyond the localized cellulitis. I did perform an incision and drainage at the bedside with a small to moderate amount of purulent fluid obtained. Patient was placed on Bactrim. He is advised to have his packing removed in 48 hours. Emergent worrisome return precautions were discussed.. Departure - Departure Disposition: 01 Home, Self Care Clinical Impression: Abscess of left groin Condition: Stable Record reviewed to determine appropriate education?: Yes Instructions: ED Abscess IandD Follow-Up: Cecily Neal ARNP [Primary Care Provider] - Prescriptions: Sulfamethox/Trimeth 800/160 [Bactrim Ds 800/160] 1 each PO BID #14 tablet HYDROcod/ACETAM 5/325 [[place] 5/325] 1 tab PO BID #4 tablet Comments: You had an abscess in your left groin. We did open it with a scalpel to drain it. Please fill the prescription for the antibiotics and begin taking twice daily as directed. I have prescribed a very limited amount of hydrocodone. Do not drive if taking this medication it makes you legally impaired. In 24 to 48 hours I would like you to remove the packing from your groin. If you are having increased pain or redness despite the antibiotics please return to the ER for a second look.
[2021-01-17] MEDS ORDERED: IOPAMIDOL-300 100 ML VIAL ONE (19:01)
[2021-01-17 19:04] LABS: BASOPHILS % (AUTO) 0.5 %; EOSINOPHILS # (AUTO) 0.2 10^3/uL (0.0-0.7); EOSINOPHILS % (AUTO) 2.2 %; HCT - HEMATOCRIT 40.7 % (42.0-52.0); HGB - HEMOGLOBIN 13.5 g/dL (14.0-18.0); LYMPHOCYTES # (AUTO) 2.3 10^3/uL (1.5-3.5); LYMPHOCYTES % (AUTO) 27.3 %; MEAN CORPUSCULAR HEMOGLOBIN 27.2 pg (27.0-31.0); MEAN CORPUSCULAR HGB CONC 33.2 g/dL (32.0-36.0); MEAN CORPUSCULAR VOLUME 81.9 fL (80.0-94.0); MEAN PLATELET VOLUME 8.2 fL (7.4-11.4); MONOCYTES # (AUTO) 0.8 10^3/uL (0.0-1.0); NEUTROPHILS # (AUTO) 4.9 10^3/uL (1.5-6.6); NEUTROPHILS % (AUTO) 59.6 %; PLT - PLATELET COUNT 348 10^3/uL (130-450); RED BLOOD COUNT 4.97 10^6/uL (4.70-6.10); RED CELL DISTRIBUTION WIDTH 12.9 % (12.0-15.0); WHITE BLOOD COUNT 8.2 x10^3/uL (4.8-10.8)
[2021-01-17 19:18] LABS: ALBUMIN/GLOBULIN RATIO 1.2 (1.0-2.2); BILIRUBIN,TOTAL 0.7 mg/dL (0.2-1.0); CREATININE 0.9 mg/dL (0.6-1.2); POTASSIUM 3.6 mmol/L (3.5-5.0); TOTAL PROTEIN 7.3 g/dL (6.7-8.2)
[2021-01-17] MEDS ORDERED: IOPAMIDOL-300 100 ML VIAL IVP ONE (20:29)
[2021-01-17] MEDS ORDERED: BUFFERED LIDOCAINE 10 ML SYRINGE SUBQ STA (20:49)
--- NOTE | 2021-01-17 21:08 | CT Report ---
PROCEDURE: PELVIS W INDICATIONS: groin abscess; r/o fourneirs CONTRAST: IV CONTRAST: Isovue 300 ml: 100 PO CONTRAST: *NO PO CONTRAST TECHNIQUE: After the administration of IV contrast, 5 mm thick sections acquired from the iliac crests to the sy mphysis. 5 mm thick coronal and sagittal reformats were acquired. For radiation dose reduction, the following was used: automated exposure control, adjustment of mA and/or kV according to patient siz e. COMPARISON: None FINDINGS: Image quality: Excellent. Peritoneum and bowel: Contrast enhanced bowel loops demonstrate normal wall thickness and caliber. No free fluid or air. Genitourinary: The urinary bladder is decompressed. The prostate gland size is normal. Nodes and vessels: No bulky iliac, pelvic, or inguinal adenopathy. Iliac vessels demonstrate normal size and enhancement. Bones: No suspicious bony lesions. Degenerative disc disease at the L4-5 and L5-S1 levels with reac tive lytic and sclerotic changes along the left aspect of L5-S1. Miscellaneous: There is a subcutaneous amorphous mildly hyperdense mass measuring 2.5 cm and the left inguinal region with overlying skin thickening. No associated subcutaneous gas. No evidence of ingui nal hernia. The adjacent vasculature remains patent. No adjacent bulky adenopathy. Normal size lymph nodes are seen, a few extending into the left external iliac chain proximally. Small fat-containing umbilical hernia. IMPRESSION: 1. No evidence of gas-forming organism. 2. 2.5 cm hyperdense subcutaneous mass left inguinal region with mild overlying cellulitis. A discret e drainable fluid collection is not identified. Reviewed by: Sophie Phan MD on 01/17/2021 9:07 PM PDT Approved by: Sophie Phan MD on 01/17/2021 9:07 PM PDT Station ID: [id number]
[2021-01-17] MEDS ORDERED: SULFAMETH/TRIMETH DS 800/160 MG TABLET PO STA (21:27)
[2021-01-17] MEDS ORDERED: SULFAMETHOX/TRIMETH 800/160 SUSP 20 ML PO ONE (21:43)
[2021-01-17] MEDS ORDERED: SULFAMETH/TRIMETH DS 800/160 MG TABLET PO ONE (21:44)
[2021-01-17 21:46] VITALS: BP 152/92
== END 2021-01-17 21:55 | disposition home or self-care (01) ==
LOC: ED 17:33
DX: L02.214 Cutaneous abscess of groin (principal); L03.314 Cellulitis of groin
CPT/HCPCS: 10060; 36415; 72193; 80053; 83690; 85025; 96374; 96376; 99283; 99284; A9270; J1170; Q9967

== ENCOUNTER 2021-12-18 11:31 | Emergency (ER) | payer MEDICAID ==
[2021-12-18] MEDS ORDERED: BUPRENORPHINE 0.3 MG/ML VIAL IM ONE (12:40)
--- NOTE | 2021-12-18 12:41 | ED Physician Documentation ---
History of Present Illness - Stated complaint Stated Complaint: BACK PX/CHILLS/FEVER - Chief complaint Chief Complaint: Abd Pain - History obtained from History obtained from: Patient - Additonal information Additional information: 51-year-old gentleman stopped using fentanyl by smoking yesterday. Hoping to get clean. Now feeling irritable, nauseous and sweaty with back and body aches. No fevers. Did have recent COVID. No other health issues. Review of Systems Constitutional: reports: Chills, Myalgias, Sweats Cardiac: denies: Chest pain / pressure, Palpitations Respiratory: denies: Dyspnea, Cough GI: reports: Nausea. denies: Abdominal Pain, Diarrhea PD PAST MEDICAL HISTORY - Past Medical History Cardiovascular: None Respiratory: None Neuro: None Endocrine/Autoimmune: None GI: None : None Psych: Depression, Anxiety, Other Musculoskeletal: None Derm: None - Past Surgical History Past Surgical History: No - Present Medications Home Medications: Ambulatory Orders Medication Instructions Recorded Confirmed No Known Home Medications 12/18/21 12/18/21 - Allergies Allergies/Adverse Reactions: Allergies Allergy/AdvReac Type Severity Reaction Status Date / Time No Known Drug Allergies Allergy Verified 12/18/21 11:49 - Social History Does the pt smoke?: No Smoking Status: Current every day smoker Does the pt drink ETOH?: Yes Does the pt have substance abuse?: Yes - Immunizations Immunizations are current?: No - POLST Patient has POLST: No POLST Status: Full Code PD ED PE NORMAL - Vitals Vital signs reviewed: Yes - General General: Alert and oriented X 3, Well developed/nourished, Other (Appears uncomfortable) - Neck Neck: Supple, no meningeal sign, No bony TTP - Derm Derm: Normal color, Warm and dry - Extremities Extremities: No edema, No calf tenderness / cord - Neuro Neuro: Alert and oriented X 3, Normal speech Results - Vitals Vitals: Vital Signs - 24 hr 12/18/21 12/18/21 12/18/21 15:03 16:41 18:00 Temperature Heart Rate 96 90 76 Respiratory 28 H 18 18 Rate Blood Pressure 155/100 H 151/111 H 131/78 H O2 Saturation 100 98 100 12/18/21 12/19/21 12/19/21 20:00 01:00 03:00 Temperature 37.4 C 37.3 C Heart Rate 80 87 90 Respiratory 18 22 20 Rate Blood Pressure 150/100 H 172/109 H 155/95 H O2 Saturation 97 99 99 12/19/21 12/19/21 12/19/21 05:00 06:09 09:27 Temperature 36.6 C Heart Rate 88 112 H Respiratory 19 12 16 Rate Blood Pressure 140/88 H 140/90 H O2 Saturation 97 99 Oxygen O2 Source Room air - EKG (time done) 1338 Rate: Rate (enter#) (89) Rhythm: NSR, LAE [place]: Normal Intervals: Normal IA QRS: Normal Ischemia: Normal ST segments - Labs Labs: Laboratory Tests 12/18/21 12/18/21 12/18/21 13:32 13:32 13:32 WBC 10.4 RBC 5.57 Hgb 15.3 Hct 45.1 MCV 81.0 MCH 27.5 MCHC 33.9 RDW 12.7 Plt Count 437 MPV 8.9 Neut # (Auto) 8.3 H Lymph # (Auto) 1.5 [place] # (Auto) 0.6 Eos # (Auto) 0.0 Baso # (Auto) 0.0 Absolute Nucleated RBC 0.00 Nucleated RBC % 0.0 Sodium 137 Potassium 3.5 Chloride 99 L Carbon Dioxide 26 Anion Gap 12.0 BUN 14 Creatinine 0.8 Estimated GFR (MDRD) 101 Glucose 112 H Calcium 9.1 Total Bilirubin 0.8 AST 22 ALT 23 Alkaline Phosphatase 88 Total Protein 7.6 Albumin 4.2 Globulin 3.4 Albumin/Globulin Ratio 1.2 Lipase 36 TSH 0.18 L Urine Color Urine Clarity Urine pH Ur Specific [place] Urine Protein Urine Glucose (UA) Urine Ketones Urine Occult Blood Urine Nitrite Urine Bilirubin Urine Urobilinogen Ur Leukocyte Esterase Ur Microscopic Review Urine Culture Comments Nasal Adenovirus (PCR) Nasal B. parapertussis DNA (PCR) Nasal Coronavir 229E PCR Nasal Coronavir HKU1 PCR Nasal Coronavir NL63 PCR Nasal Coronavir OC43 PCR Nasal Enterovir/Rhinovir PCR Nasal Influenza B PCR Nasal Influenza A PCR Nasal Parainfluen 1 PCR Nasal Parainfluen 2 PCR Nasal Parainfluen 3 PCR Nasal Parainfluen 4 PCR Nasal RSV (PCR) Nasal B.pertussis DNA PCR Nasal C.pneumoniae (PCR) [place] Human Metapneumo PCR Nasal M.pneumoniae (PCR) Nasal SARS-CoV-2 (PCR) Salicylates < 6.0 Urine Opiates Screen Ur Oxycodone Screen Urine Methadone Screen Ur Propoxyphene Screen Acetaminophen < 10 L Ur Barbiturates Screen Ur Tricyclics Screen Ur Phencyclidine Scrn Ur Amphetamine Screen U Methamphetamines Scrn U Benzodiazepines Scrn Urine Cocaine Screen U Cannabinoids Screen Ethyl Alcohol < 5.0 12/18/21 12/18/21 13:55 15:08 WBC RBC Hgb Hct MCV MCH MCHC RDW Plt Count MPV Neut # (Auto) Lymph # (Auto) [place] # (Auto) Eos # (Auto) Baso # (Auto) Absolute Nucleated RBC Nucleated RBC % Sodium Potassium Chloride Carbon Dioxide Anion Gap BUN Creatinine Estimated GFR (MDRD) Glucose Calcium Total Bilirubin AST ALT Alkaline Phosphatase Total Protein Albumin Globulin Albumin/Globulin Ratio Lipase TSH Urine Color YELLOW Urine Clarity CLEAR Urine pH 7.5 Ur Specific [place] 1.015 Urine Protein NEGATIVE Urine Glucose (UA) NEGATIVE Urine Ketones NEGATIVE Urine Occult Blood NEGATIVE Urine Nitrite NEGATIVE Urine Bilirubin NEGATIVE Urine Urobilinogen 1 (NORMAL) Ur Leukocyte Esterase NEGATIVE Ur Microscopic Review NOT INDICATED Urine Culture Comments NOT INDICATED Nasal Adenovirus (PCR) NOT DETECTED Nasal B. parapertussis DNA (PCR) NOT DETECTED Nasal Coronavir 229E PCR NOT DETECTED Nasal Coronavir HKU1 PCR NOT DETECTED Nasal Coronavir NL63 PCR NOT DETECTED Nasal Coronavir OC43 PCR NOT DETECTED Nasal Enterovir/Rhinovir PCR NOT DETECTED Nasal Influenza B PCR NOT DETECTED Nasal Influenza A PCR NOT DETECTED Nasal Parainfluen 1 PCR NOT DETECTED Nasal Parainfluen 2 PCR NOT DETECTED Nasal Parainfluen 3 PCR NOT DETECTED Nasal Parainfluen 4 PCR NOT DETECTED Nasal RSV (PCR) NOT DETECTED Nasal B.pertussis DNA PCR NOT DETECTED Nasal C.pneumoniae (PCR) NOT DETECTED [place] Human Metapneumo PCR NOT DETECTED Nasal M.pneumoniae (PCR) NOT DETECTED Nasal SARS-CoV-2 (PCR) NOT DETECTED Salicylates Urine Opiates Screen NEGATIVE Ur Oxycodone Screen NEGATIVE Urine Methadone Screen NEGATIVE Ur Propoxyphene Screen NEGATIVE Acetaminophen Ur Barbiturates Screen NEGATIVE Ur Tricyclics Screen NEGATIVE Ur Phencyclidine Scrn NEGATIVE Ur Amphetamine Screen POSITIVE H U Methamphetamines Scrn POSITIVE H U Benzodiazepines Scrn NEGATIVE Urine Cocaine Screen NEGATIVE U Cannabinoids Screen POSITIVE H Ethyl Alcohol PD MEDICAL DECISION MAKING - ED course ED course: 51-year-old gentleman here for symptomatic fentanyl withdrawal. Social work saw him and stated to the social sciences department chair that he was suicidal and this may result in significant ED length of stay given recent active Covid, voluntary status and need for a dual diagnosis bed. 51-year-old gentleman presents with opiate withdrawal. He is medically stable for transfer to a detox facility. He states he was recently tested positive for Covid but PCR negative here. Social work has identified a few potential places for him, but will end up boarding tonight pending transfer hopefully tomorrow to one of them given the late time of day. Care to overnight emergency physician at shift change. He remained stable overnight and subsequently the next day social work reported to me that he requested discharge and was no longer suicidal. No inpatient detox was immediately found today, but patient has a case packer and sealer who is working on this for him. Departure - Departure Disposition: 01 Home, Self Care Clinical Impression: Narcotic withdrawal Depression Qualifiers: Depression Type: major depressive disorder Major depression recurrence: recurrent Active/Remission status: currently active Major depression episode severity: severe Psychotic features: without psychotic features Qualified Code(s): F33.2 - Major depressive disorder, recurrent severe without psychotic features Condition: Stable Record reviewed to determine appropriate education?: Yes Instructions: ED Narcotic Abuse Comments: Follow-up with your case packer and sealer regarding inpatient detox as you are already planning. Return for new or worsening symptoms.
[2021-12-18 13:41] LABS: BASOPHILS % (AUTO) 0.1 %; EOSINOPHILS % (AUTO) 0.3 %; HCT - HEMATOCRIT 45.1 % (42.0-52.0); HGB - HEMOGLOBIN 15.3 g/dL (14.0-18.0); LYMPHOCYTES # (AUTO) 1.5 10^3/uL (1.5-3.5); LYMPHOCYTES % (AUTO) 13.9 %; MEAN CORPUSCULAR HEMOGLOBIN 27.5 pg (27.0-31.0); MEAN CORPUSCULAR HGB CONC 33.9 g/dL (32.0-36.0); MEAN PLATELET VOLUME 8.9 fL (7.4-11.4); MONOCYTES # (AUTO) 0.6 10^3/uL (0.0-1.0); MONOCYTES % (AUTO) 5.7 %; NEUTROPHILS # (AUTO) 8.3 10^3/uL (1.5-6.6); NEUTROPHILS % (AUTO) 79.7 %; PLT - PLATELET COUNT 437 10^3/uL (130-450); RED BLOOD COUNT 5.57 10^6/uL (4.70-6.10); RED CELL DISTRIBUTION WIDTH 12.7 % (12.0-15.0); WHITE BLOOD COUNT 10.4 x10^3/uL (4.8-10.8)
[2021-12-18] MEDS ORDERED: LORazepam 2 MG/ML VIAL IM STA (13:47)
[2021-12-18 13:56] LABS: ACETAMINOPHEN < 10 ug/mL (10-30); ALBUMIN 4.2 g/dL (3.2-5.5); ALBUMIN/GLOBULIN RATIO 1.2 (1.0-2.2); ALKALINE PHOSPHATASE 88 IU/L (42-121); ALT ALANINE AMINOTRANSFERASE 23 IU/L (10-60); AST ASPARTATE AMINOTRANSFERASE 22 IU/L (10-42); BILIRUBIN,TOTAL 0.8 mg/dL (0.2-1.0); BUN - BLOOD UREA NITROGEN 14 mg/dL (6-20); CALCIUM 9.1 mg/dL (8.5-10.3); CARBON DIOXIDE - CO2 26 mmol/L (21-32); CHLORIDE 99 mmol/L (101-111); CREATININE 0.8 mg/dL (0.6-1.2); ETOH - ETHANOL < 5.0 mg/dL; GFR - MDRD 101 (>89); GLUCOSE 112 mg/dL (70-100); LIPASE 36 U/L (22-51); POTASSIUM 3.5 mmol/L (3.5-5.0); SALICYLATE < 6.0 mg/dL; SODIUM 137 mmol/L (135-145); TOTAL PROTEIN 7.6 g/dL (6.7-8.2)
[2021-12-18 14:56] LABS: B. PARAPERTUSSIS- RESP PCR PAN NOT DETECTED; B. PERTUSSIS- RESP PCR PANEL NOT DETECTED; C. PNEUMONIAE- RESP PCR PANEL NOT DETECTED; CORONAVIRUS 229E-RESP PCR NOT DETECTED; CORONAVIRUS HKU1-RESP PCR NOT DETECTED; CORONAVIRUS NL63-RESP PCR NOT DETECTED; CORONAVIRUS OC43-RESP PCR NOT DETECTED; HUMAN METAPNEUMOVIRUS NOT DETECTED; INFLUENZA A- RESP PCR PANEL NOT DETECTED; INFLUENZA B - RESP PCR PANEL NOT DETECTED; M. PNEUMONIAE- RESP PCR PANEL NOT DETECTED; PARAINFLUENZA VIRUS 1 NOT DETECTED; PARAINFLUENZA VIRUS 2 NOT DETECTED; PARAINFLUENZA VIRUS 3 NOT DETECTED; PARAINFLUENZA VIRUS 4 NOT DETECTED; RHINOVIRUS/ENTEROVIRUS NOT DETECTED; RSV- RESP PCR PANEL NOT DETECTED; SARS-CoV-2 -RESP PCR PANEL NOT DETECTED
[2021-12-18 15:10] LABS: MUDS CUTOFF CONCENTRATIONS CUTOFF CONC BELOW:
[2021-12-18 15:12] LABS: BILIRUBIN,URINE NEGATIVE (NEGATIVE); GLUCOSE, URINE (UA) NEGATIVE (NEGATIVE); KETONES,URINE (UA) NEGATIVE (NEGATIVE); LEUKOCYTE ESTERASE, URINE NEGATIVE (NEGATIVE); NITRITE,URINE NEGATIVE (NEGATIVE); OCCULT BLOOD,URINE NEGATIVE (NEGATIVE); PH,URINE 7.5 PH (5.0-7.5); PROTEIN,URINE NEGATIVE (NEGATIVE); UROBILINOGEN,URINE 1 (NORMAL) E.U./dL (NORMAL)
[2021-12-18 15:15] LABS: CLARITY,URINE CLEAR (CLEAR)
[2021-12-18 15:26] LABS: AMPHETAMINE SCREEN,URINE POSITIVE (NEGATIVE); BARBITURATE SCREEN,UR NEGATIVE (NEGATIVE); BENZODIAZEPINES SCREEN, URINE NEGATIVE (NEGATIVE); COCAINE SCREEN URINE NEGATIVE (NEGATIVE); METHADONE SCREEN, URINE NEGATIVE (NEGATIVE); METHAMPHETAMINES SCREEN, URINE POSITIVE (NEGATIVE); OPIATE SCREEN, URINE NEGATIVE (NEGATIVE); OXYCODONE SCREEN, URINE NEGATIVE (NEGATIVE); PROPOXYPHENE SCREEN, URINE NEGATIVE (NEGATIVE); THC CANNABINOID SCREEN, URINE POSITIVE (NEGATIVE); TRICYCLIC ANTIDEPRESSANT,URINE NEGATIVE (NEGATIVE)
[2021-12-19] MEDS ORDERED: BUPRENORPHINE 0.3 MG/ML VIAL IM ONE ×2 (02:05→07:59)
[2021-12-19] MEDS ORDERED: BUPRENORPHINE 0.3 MG/ML VIAL IVP ONE (07:56)
[2021-12-19 09:27] VITALS: BP 140/90
== END 2021-12-19 12:20 | disposition home or self-care (01) ==
LOC: ED 11:31
DX: F11.23 Opioid dependence with withdrawal (principal); F33.2 Major depressive disorder, recurrent severe without psychotic features; F17.200 Nicotine dependence, unspecified, uncomplicated; Z20.822 Contact with and (suspected) exposure to COVID-19
CPT/HCPCS: 0202U; 36415; 80053; 80306; 80307; 80320; 80329; 81003; 83690; 84443; 85025; 93005; 96372; 96374; 99283; 99284; J0592; J2060; 81001; 87086

== ENCOUNTER 2022-01-25 15:46 | Outpatient (CLI) | payer OTHER ==
[2022-01-25 15:55] LABS: BASOPHILS % (AUTO) 0.5 %; EOSINOPHILS # (AUTO) 0.2 10^3/uL (0.0-0.7); EOSINOPHILS % (AUTO) 2.4 %; HCT - HEMATOCRIT 47.9 % (42.0-52.0); HGB - HEMOGLOBIN 14.9 g/dL (14.0-18.0); LYMPHOCYTES # (AUTO) 2.3 10^3/uL (1.5-3.5); MEAN CORPUSCULAR HEMOGLOBIN 28.2 pg (27.0-31.0); MEAN CORPUSCULAR HGB CONC 31.1 g/dL (32.0-36.0); MEAN CORPUSCULAR VOLUME 90.5 fL (80.0-94.0); MEAN PLATELET VOLUME 9.4 fL (7.4-11.4); MONOCYTES # (AUTO) 0.8 10^3/uL (0.0-1.0); NEUTROPHILS # (AUTO) 4.1 10^3/uL (1.5-6.6); NEUTROPHILS % (AUTO) 54.6 %; PLT - PLATELET COUNT 296 10^3/uL (130-450); RED BLOOD COUNT 5.29 10^6/uL (4.70-6.10); RED CELL DISTRIBUTION WIDTH 13.5 % (12.0-15.0); WHITE BLOOD COUNT 7.6 x10^3/uL (4.8-10.8)
[2022-01-25 16:19] LABS: ALBUMIN 3.9 g/dL (3.2-5.5); ALBUMIN/GLOBULIN RATIO 1.3 (1.0-2.2); BILIRUBIN,TOTAL 0.6 mg/dL (0.2-1.0); CALCIUM 8.8 mg/dL (8.5-10.3); CREATININE 0.9 mg/dL (0.6-1.2); POTASSIUM 3.9 mmol/L (3.5-5.0); TOTAL PROTEIN 6.8 g/dL (6.7-8.2)
== END 2022-01-25 15:47 | disposition home or self-care (01) ==
LOC: LAB.R 15:46
PROVIDERS: ATTEND Registered Nurse
DX: Z00.01 Encounter for general adult medical examination with abnormal findings (principal)
CPT/HCPCS: 80053; 84443; 85025